=== PATIENT | male | born 1960 | race Two or more races ===

== ENCOUNTER 2017-06-30 23:03 | Inpatient (IN) | payer MEDICARE, OTHER ==
[~2017-06-30] VITALS: Ht 157.5 cm; Wt 69.9 kg
[2017-06-30] MEDS ORDERED: RENVELA800 MG ORAL (23:22)
[2017-06-30] MEDS ORDERED: CATAPRES0.3 MG ORAL (23:22)
[2017-06-30] MEDS ORDERED: AMLODIPINE BESY10 MG ORAL (23:22)
[2017-06-30 23:30] VITALS: BP 191/99
[2017-06-30] MEDS ORDERED: Vancomycin 1.5gm/D5W 250ml 250 ML IVPB ONE (23:45)
[2017-07-01] VITALS (7 sets, daily range): BP systolic 138–181; BP diastolic 80–93
--- NOTE | 2017-07-01 00:26 | Emergency Room Report ---
History of Present Illness General Chief Complaint: Pain Source: Patient Present Illness HPI 57-year-old male history of hypertension, CKD, on dialysis Monday, last dialysis was yesterday, presenting with left infected AV fistula. The patient states that he experienced pain redness and swelling to left forearm , was hospitalized last week for 2 days, states that he got antibiotics, has continued antibiotics at home, but states that there has still been left forearm persistent/worse swelling pain and redness.+ Purulent discharge No fever or chills Allergies: Coded Allergies: HEPARIN (Verified Allergy, Unknown, 06/30/17) Patient History Past Medical History: see triage record Past Surgical History: none Pertinent Family History: none Reviewed Nursing Documentation: PMH: Agreed, PSxH: Agreed Nursing Documentation-PMH Hx Hypertension: Yes Hx Dialysis: Yes - ESRD,[id number] Review of Systems All Other Systems: negative except mentioned in HPI Physical Exam Vital Signs Date Time Temp Pulse Resp B/P (MAP) Pulse Ox O2 Delivery O2 Flow Rate FiO2 06/30/17 23:13 98.2 106 16 191/99 100 Sp02 EP Interpretation: reviewed, normal General Appearance: alert, GCS 15, non-toxic, other - Middle aged male, nontoxic but appears to be in mild distress/pain Head: normocephalic, atraumatic Eyes: bilateral eye normal inspection, bilateral eye PERRL, bilateral eye EOMI ENT: normal ENT inspection, normal pharynx, normal voice, moist mucus membranes Neck: normal inspection, full range of motion, supple Respiratory: normal inspection, lungs clear, normal breath sounds, no respiratory distress, no retraction, no wheezing, speaking full sentences, chest symmetrical Cardiovascular #1: normal inspection, regular rate, rhythm, no edema, normal capillary refill Cardiovascular #2: 2+ radial (R), 2+ radial (L) Gastrointestinal: normal inspection, non tender, soft, non-distended, no guarding Musculoskeletal: normal inspection, back normal, normal range of motion, non- tender Neurologic: normal inspection, alert, oriented x3, responsive, motor strength/ tone normal, sensory intact, normal gait, speech normal Psychiatric: normal inspection, judgement/insight normal, memory normal Skin: normal turgor, other - Left forearm, AV fistula with 2 x 2 ulceration, yellow purulent drainage, surrounding erythema 5 x 5 cm tender to palpation Medical Decision Making Diagnostic Impression: Primary Impression: AV fistula infection Additional Impressions: Cellulitis ESRD (end stage renal disease) on dialysis Anemia ER Course 57-year-old male with redness/swelling to AV fistula for 1.5 weeks DDX: Infected AV fistula/cellulitis No crepitus / pain out of proportion / rapid spreading for concern for nec fasc Plan: Antibiotics Anticipate admission as patient failing outpatient management ER course: Patient received antibiotics Remained stable in ED Disposition: Patient is to be admitted to med surg D/W hospitalist Dr Ruiz who has accepted patient for admission Please note that this Emergency Department Report was dictated using [employer] salesperson technology software, occasionally this can lead to erroneous entry secondary to interpretation by the dictation equipment. Laboratory Tests Test 07/01/17 00:20 White Blood Count 3.5 K/UL (4.8-10.8) L Red Blood Count 3.20 M/UL (4.70-6.10) L Hemoglobin 9.8 G/DL (14.2-18.0) L Hematocrit 31.4 % (42.0-52.0) L Mean Corpuscular Volume 98 FL (80-99) Mean Corpuscular Hemoglobin 30.7 PG (27.0-31.0) Mean Corpuscular Hemoglobin Concent 31.3 G/DL (32.0-36.0) L Red Cell Distribution Width 15.6 % (11.6-14.8) H Platelet Count 202 K/UL (150-450) Mean Platelet Volume 6.3 FL (6.5-10.1) L Neutrophils (%) (Auto) 70.0 % (45.0-75.0) Lymphocytes (%) (Auto) 13.1 % (20.0-45.0) L Monocytes (%) (Auto) 11.5 % (1.0-10.0) H Eosinophils (%) (Auto) 3.9 % (0.0-3.0) H Basophils (%) (Auto) 1.6 % (0.0-2.0) Sodium Level 141 mEQ/L (135-145) Potassium Level 4.3 mEQ/L (3.4-4.9) Chloride Level 96 mEQ/L (98-107) L Carbon Dioxide Level 25 mEQ/L (20-30) Anion Gap 20 (5-15) H Blood Urea Nitrogen 36 mg/dL (7-23) H Creatinine 9.3 mg/dL (0.7-1.2) H Estimate Glomerular Filtration Rate 5.9 mL/min (>60) Glucose Level 91 mg/dL (74-106) Lactic Acid Level Pending Calcium Level 9.2 mg/dL (8.6-10.2) Total Bilirubin 0.3 mg/dL (0.0-1.2) Aspartate Amino Transferase (AST) 19 U/L (5-40) Alanine Aminotransferase (ALT) 5 U/L (3-41) Alkaline Phosphatase 58 U/L (40-129) Total Protein 7.9 g/dL (6.6-8.7) Albumin 4.2 g/dL (3.5-5.2) Globulin 3.7 g/dL Albumin/Globulin Ratio 1.1 (1.0-2.7) Last Vital Signs Date Time Temp Pulse Resp B/P (MAP) Pulse Ox O2 Delivery O2 Flow Rate FiO2 06/30/17 23:13 98.2 106 16 191/99 100 Disposition: ADMITTED INPATIENT Condition: Serious Referrals: NOT CHOSEN SARAVANAN/,REFERRING (PCP) Drew Barry M.D. Jul 01, 2017 00:26
[2017-07-01 00:53] LABS: BASOPHILS % (AUTO) 1.6 % (0.0-2.0); EOSINOPHILS % (AUTO) 3.9 % (0.0-3.0); LYMPHOCYTES % (AUTO) 13.1 % (20.0-45.0); MEAN CORPUSCULAR HEMOGLOBIN 30.7 PG (27.0-31.0); MEAN CORPUSCULAR HGB CONC 31.3 G/DL (32.0-36.0); MEAN CORPUSCULAR VOLUME 98 FL (80-99); MEAN PLATELET VOLUME 6.3 FL (6.5-10.1); MONOCYTES % (AUTO) 11.5 % (1.0-10.0); PLATELET COUNT 202 K/UL (150-450); RED CELL DISTRIBUTION WIDTH 15.6 % (11.6-14.8); WHITE BLOOD COUNT 3.5 K/UL (4.8-10.8)
[2017-07-01 01:07] LABS: ALBUMIN/GLOBULIN RATIO 1.1 (1.0-2.7); CALCIUM 9.2 mg/dL (8.6-10.2); CREATININE 9.3 mg/dL (0.7-1.2); GLOMERULAR FILTRATION RATE 5.9 mL/min (>60); POTASSIUM 4.3 mEQ/L (3.4-4.9); TOTAL PROTEIN 7.9 g/dL (6.6-8.7)
[2017-07-01] MEDS ORDERED: cloNIDine 0.2mg Tab ORAL ONE (01:30)
[2017-07-01] MEDS ORDERED: Morphine Sulfate 4mg/ml Inj IVP ONE (02:00)
[2017-07-01] MEDS ORDERED: Norco 10mg/325mg tab ORAL PRN (09:45)
[2017-07-01] MEDS: Cefepime HCl 1 GM in D5W 55 ML IVPB SCH (14:45)
--- NOTE | 2017-07-01 15:00 | Infectious Diseases Prog Note ---
Assessment/Plan Problems: (1) AV fistula infection Assessment & Plan: recommend vascular surgery for I&D and please send tissue for culture , will start vancomycin with cefepime empirically pending culture results (2) Cellulitis Assessment & Plan: of the left arm, due to surgical fistula infection, will start vancomycin and cefepime empirically pending culture results (3) Sepsis Assessment & Plan: due to the above, continue wide spectrum antibiotics , pending blood culture (4) ESRD (end stage renal disease) on dialysis Assessment & Plan: continue HD as per renal. Subjective Allergies: Coded Allergies: HEPARIN (Verified Allergy, Unknown, 06/30/17) Objective Vital Signs Last 24 Hour Vital Signs Date Time Temp Pulse Resp B/P (MAP) Pulse Ox O2 Delivery O2 Flow Rate FiO2 07/01/17 12:00 97.3 89 20 149/84 99 Room Air 07/01/17 08:07 97.5 78 19 155/80 99 Room Air 07/01/17 04:03 97.9 82 18 139/82 98 Room Air 07/01/17 02:08 98.1 98 16 181/83 100 07/01/17 01:32 181/83 07/01/17 01:30 98.1 98 16 181/83 100 06/30/17 23:30 98.2 106 16 191/99 100 06/30/17 23:13 98.2 106 16 191/99 100 Height (Feet): 5 Height (Inches): 2.00 Weight (Pounds): 158 Laboratory Tests Test 07/01/17 00:20 White Blood Count 3.5 K/UL (4.8-10.8) L Red Blood Count 3.20 M/UL (4.70-6.10) L Hemoglobin 9.8 G/DL (14.2-18.0) L Hematocrit 31.4 % (42.0-52.0) L Mean Corpuscular Volume 98 FL (80-99) Mean Corpuscular Hemoglobin 30.7 PG (27.0-31.0) Mean Corpuscular Hemoglobin Concent 31.3 G/DL (32.0-36.0) L Red Cell Distribution Width 15.6 % (11.6-14.8) H Platelet Count 202 K/UL (150-450) Mean Platelet Volume 6.3 FL (6.5-10.1) L Neutrophils (%) (Auto) 70.0 % (45.0-75.0) Lymphocytes (%) (Auto) 13.1 % (20.0-45.0) L Monocytes (%) (Auto) 11.5 % (1.0-10.0) H Eosinophils (%) (Auto) 3.9 % (0.0-3.0) H Basophils (%) (Auto) 1.6 % (0.0-2.0) Sodium Level 141 mEQ/L (135-145) Potassium Level 4.3 mEQ/L (3.4-4.9) Chloride Level 96 mEQ/L (98-107) L Carbon Dioxide Level 25 mEQ/L (20-30) Anion Gap 20 (5-15) H Blood Urea Nitrogen 36 mg/dL (7-23) H Creatinine 9.3 mg/dL (0.7-1.2) H Estimat Glomerular Filtration Rate 5.9 mL/min (>60) Glucose Level 91 mg/dL (74-106) Lactic Acid Level 1.00 mmol/L (0.66-2.22) Calcium Level 9.2 mg/dL (8.6-10.2) Total Bilirubin 0.3 mg/dL (0.0-1.2) Aspartate Amino Transf (AST/SGOT) 19 U/L (5-40) Alanine Aminotransferase (ALT/SGPT) 5 U/L (3-41) Alkaline Phosphatase 58 U/L (40-129) Total Protein 7.9 g/dL (6.6-8.7) Albumin 4.2 g/dL (3.5-5.2) Globulin 3.7 g/dL Albumin/Globulin Ratio 1.1 (1.0-2.7) Current Medications Medications (Trade) Dose Ordered Sig/Kelly Route PRN Reason Start Time Stop Time Status Last Admin Dose Admin Acetaminophen (Tylenol) 650 mg Q4H PRN ORAL Mild Pain (Pain Scale 1-3) 07/01/17 09:45 07/31/17 09:44 Acetaminophen/ Hydrocodone Bitart (Battiest 10325) 1 ea Q4H PRN ORAL Moderate Pain (Pain Scale 4-6) 07/01/17 09:45 07/08/17 09:44 Amlodipine Besylate (Norvasc) 10 mg DAILY ORAL 07/02/17 09:00 11/7/17 08:59 Cefepime HCl 1 gm/ Dextrose 55 ml @ 110 mls/hr Q24H IVPB 07/01/17 14:30 07/08/17 14:29 07/01/17 14:45 Dextrose (Dextrose 50%) STAT PRN IV Hypoglycemia 07/01/17 09:45 07/31/17 09:44 Morphine Sulfate (Morphine Sulfate) 2 mg Q4H PRN IVP Severe Pain (Pain Scale 7-10) 07/01/17 09:45 07/08/17 09:44 Ondansetron HCl (Zofran) 4 mg Q6H PRN IVP Nausea & Vomiting 07/01/17 09:45 07/31/17 09:44 Sevelamer Carbonate (Renvela) 800 mg THREE TIMES A DAY ORAL 07/01/17 13:00 07/31/17 12:59 07/01/17 14:00 Vancomycin HCl (Vanco rx to dose) 1 ea DAILY PRN MISC Per rx protocol 07/01/17 12:45 07/31/17 12:44 Bassem Tipton M.D. Jul 01, 2017 15:00
--- NOTE | 2017-07-01 17:50 | Nephrology Progress Note ---
Assessment/Plan Problem List: (1) Anemia (2) AV fistula infection (3) ESRD (end stage renal disease) on dialysis (4) Sepsis (5) Cellulitis Plan H&P dictated - [id number] Subjective Constitutional: Denies: no symptoms, chills, diaphoresis, fever, malaise, weakness, other HEENT: Denies: no symptoms, eye pain, blurred vision, tearing, double vision, ear pain, ear discharge, nose pain, nose congestion, throat pain, throat swelling, mouth pain, mouth swelling, other Genitourinary: Denies: no symptoms, burning, discharge, frequency, flank pain, hematuria, incontinence, pain, urgency, other Neurologic/Psychiatric: Denies: no symptoms, anxiety, depressed, emotional problems, headache, numbness, paresthesia, pre-existing deficit, seizure, tingling, tremors, weakness, other Subjective In bed, in no apparent distress, HD ongoing, left arm pain Objective Objective Last 24 Hour Vital Signs Date Time Temp Pulse Resp B/P (MAP) Pulse Ox O2 Delivery O2 Flow Rate FiO2 07/01/17 16:00 97.5 84 20 138/91 98 Room Air 07/01/17 12:00 97.3 89 20 149/84 99 Room Air 07/01/17 08:07 97.5 78 19 155/80 99 Room Air 07/01/17 04:03 97.9 82 18 139/82 98 Room Air 07/01/17 02:08 98.1 98 16 181/83 100 07/01/17 01:32 181/83 07/01/17 01:30 98.1 98 16 181/83 100 06/30/17 23:30 98.2 106 16 191/99 100 06/30/17 23:13 98.2 106 16 191/99 100 Intake and Output 07/01/17 07/02/17 19:00 07:00 Intake Total 55 ml Balance 55 ml IV Total 55 ml Laboratory Tests 07/01/17 00:20: White Blood Count 3.5L, Red Blood Count 3.20L, Hemoglobin 9.8L, Hematocrit 31.4L , Mean Corpuscular Volume 98, Mean Corpuscular Hemoglobin 30.7, Mean Corpuscular Hemoglobin Concent 31.3L, Red Cell Distribution Width 15.6H, Platelet Count 202, Mean Platelet Volume 6.3L, Neutrophils (%) (Auto) 70.0, Lymphocytes (%) (Auto) 13.1L, Monocytes (%) (Auto) 11.5H, Eosinophils (%) (Auto ) 3.9H, Basophils (%) (Auto) 1.6, Sodium Level 141, Potassium Level 4.3, Chloride Level 96L, Carbon Dioxide Level 25, Anion Gap 20H, Blood Urea Nitrogen 36H, Creatinine 9.3H, Estimat Glomerular Filtration Rate 5.9, Glucose Level 91, Lactic Acid Level 1.00, Calcium Level 9.2, Total Bilirubin 0.3, Aspartate Amino Transf (AST/SGOT) 19, Alanine Aminotransferase (ALT/SGPT) 5, Alkaline Phosphatase 58, Total Protein 7.9, Albumin 4.2, Globulin 3.7, Albumin/Globulin Ratio 1.1 Height (Feet): 5 Height (Inches): 2.00 Weight (Pounds): 158 General Appearance: no apparent distress, alert EENT: normal ENT inspection Neck: normal alignment, supple Cardiovascular: normal rate, regular rhythm, no JVD Respiratory/Chest: lungs clear, normal breath sounds Abdomen: non tender, soft Extremities: other - left arm wound Neurologic: alert, oriented x 3, responsive, normal mood/affect Isha Katz N.P. Jul 01, 2017 17:50
[2017-07-01] MEDS ORDERED: Bacitracin Oint UD TOPIC ONE (19:30)
--- NOTE | 2017-07-01 19:44 | General Progress Note ---
Progress Note Progress Note Patient seen and examined Consult dictated # [id number] DENISSE QUIJANO Jul 01, 2017 19:43
--- NOTE | 2017-07-01 22:15 | Consultation ---
DATE OF CONSULTATION: INFECTIOUS DISEASE CONSULTATION CONSULTING PHYSICIAN: Bassem Tipton M.D. REQUESTING PHYSICIAN: Jim Cobos M.D. Reason For Consultation: Left arm AV fistula infection, recommendation for antibiotics therapy in a hemodialysis patient History Of Present Illness: The patient is a 57-year-old male with past medical history of end-stage renal disease, on hemodialysis and hypertension, who had recently left arm AV fistula placed at by one of the vascular surgeon. The patient developed pain, redness, and swelling of the surgical site with pus draining, so he had follow up with his surgeon who placed the fistula, but received some oral antibiotics, which he did not get better with. So, he was brought into [facility] for left arm worsening infection with pus, redness, and purulent discharge from the surgical site. The patient complained of fever. No chills. Left arm swelling, redness, and difficulty moving. The patient was found to have pus at the surgical site in the emergency room. So, he was admitted for evaluation and management. Received antibiotics treatment and I was consulted by the primary provider team for antibiotics choice and further care. Past Medical History: Significant for end-stage renal disease and hypertension. Past Surgical History: He had left arm AV fistula placed couple of weeks ago in . Medications: The patient received vancomycin in the emergency room. For the rest of his medications, please refer to MAR. ALLERGIES: He is allergic to heparin. Social History: The patient denied using any drugs, tobacco, or alcohol. He is unemployed at this point. FAMILY HISTORY: Noncontributory. Review Of Systems: A 12-point of system reviewed were all negative apart from the one I mentioned above in my History and Physical. PHYSICAL EXAMINATION: Vital Signs: Temperature 97.5 degrees, pulse 78, respiration 19, blood pressure 155/80, and saturation 99% on room air. General: A middle-aged male, Ecuadorean speaker, up in bed, awake, alert, and oriented, not in distress. HEENT: Normocephalic, atraumatic. Pupils reactive to light. Moist oral mucosa. No exudate or thrush. NECK: Supple. No lymphadenopathy. CARDIOVASCULAR: Regular rate and rhythm. No murmur or gallop. Lungs: Clear bilaterally. No wheezing or rhonchi. Normal breathing effort. Abdomen: Soft, nontender, nondistended. Positive bowel sounds. No hepatosplenomegaly. Extremities: No edema or cyanosis. Left arm swelling and redness with AV fistula wound infection. Site with ulcer and purulent discharge from that area. Pulse palpitated at the wrist area with normal range of motion at the joint site. Laboratory Data: Labs showed white count of 3.5, hemoglobin of 9.8, platelet count of 202,000. BUN of 36, creatinine of 9.3. AST of 19, ALT of 5. ASSESSMENT AND RECOMMENDATION: 1. Arteriovenous fistula infection. Recommend Vascular Surgery for incision debridement and revision of the fistula. Please send tissue for culture and Gram stain. We will start the patient on vancomycin and cefepime empiric treatment pending culture results. We will order blood culture also to rule out bacteremia. 2. Cellulitis of the left arm due to surgically infected fistula site. We will start vancomycin and cefepime, empiric treatment pending culture results. Further debridement as per Surgery. 3. Sepsis due to the above. Continue wide-spectrum antibiotics therapy. Monitor blood culture. 4. End-stage renal disease, on hemodialysis. Renal service is following. Bassem Tipton M.D. DR: Soumya JOB#: [id number] CC:
[2017-07-02 00:34] VITALS: BP 167/90
[2017-07-02] MEDS: Morphine Sulfate 2mg/ml Inj IVP PRN ×2 (01:35→16:05)
[2017-07-02 04:03] VITALS: BP 169/88
--- NOTE | 2017-07-02 04:30 | HX and Phyl Repo 2 Sig ---
DATE OF ADMISSION: 07/01/2017 History Of Present Illness: The patient is a 57-year-old male with past medical history significant for hypertension, end-stage renal disease on hemodialysis every Monday, , and Monday, who presented to the emergency room with left infected AV fistula. The patient stated that this has been ongoing for about three weeks. He has seen his vascular surgeon at [facility], Dr. Jed Starr, who treated his arm and told him that everything was okay and also had him on antibiotics, but he stated that the arm got worse and then about a week ago, he did see a doctor, but then he started having fever, chills, and increasing pain and decided to come to this emergency room for evaluation. He denies chest pain, but stated that he has noticed swelling on his left shoulder with pain. Denies nausea. No vomiting. No abdominal pain. He has been compliant with his antibiotics. Past Medical History: Significant for hypertension, end-stage renal disease, on hemodialysis. PAST SURGICAL HISTORY: Left AV fistula. Home Medications: Include amlodipine 10 mg p.o. daily, clonidine 0.3 mg p.o. t.i.d., and Renvela 1600 mg p.o. t.i.d. ALLERGIES: He is allergic to heparin. Social History: He lives at home with a friend. Denies any smoking. No alcohol use and no illicit drug use. Review Of Systems: A full 12-point review of system was reviewed with the patient and positives are stated in HPI. PHYSICAL EXAMINATION: General: This is a 57-year-old male in no apparent distress, currently on hemodialysis. Vital Signs: Blood pressure 138/91, heart rate 84, respiratory rate 20, temperature 97.5 degrees, and O2 saturation 98% on room air. HEENT: Head is normocephalic and atraumatic with moist mucous membranes. Pupils are equal, round, and reactive to light and accommodation. Neck: Supple. No JVD noted; however, there is left lateral neck swelling. Trachea midline. LUNGS: Clear to auscultation bilaterally. CARDIOVASCULAR: Regular rate and rhythm. No murmur. No gallop. Abdomen: Soft, nontender, nondistended. Positive bowel sounds in all four quadrants. Extremities: No edema. No cyanosis. No clubbing. Left upper extremity edema 4+ with open wound noted with purulent discharge. Area of erythema noted as well. Arm is warm to touch. Neurologic: The patient is awake, alert, and oriented x3 with no focal deficits. Laboratory Data: CBC, white count 3.5, hemoglobin 9.8, hematocrit 31.4, and platelet count of 202,000. BMP, sodium 141, potassium 4.3, chloride 96, bicarbonate 25, BUN 36, creatinine 9.3, blood glucose 91. RADIOLOGIC FINDINGS: None at this time. ASSESSMENT: 1. Left upper arm cellulitis. 2. Left arteriovenous fistula infection. 3. End-stage renal disease, on hemodialysis. 4. Anemia of chronic kidney disease. 5. Left upper arm pain. Plan: The patient has been seen by Dr. Tipton, Infectious Disease. We will follow up with recommendations. We will continue antibiotics as recommended. We will obtain vascular surgeon consult to assess left arm. We will monitor electrolytes and correct with hemodialysis. We will continue hemodialysis as scheduled. Monitor temperature. Wound care per recommendations. We will monitor hemoglobin and hematocrit and transfuse as needed. We will continue home medications. We will monitor the patient's overall response to treatment. Jim Cobos M.D. Isha Katz DR: Sheela JOB#: [id number] CC:
--- NOTE | 2017-07-02 06:15 | Consultation ---
DATE OF CONSULTATION: 07/01/2017 VASCULAR SURGERY CONSULTATION CONSULTING PHYSICIAN: Kel Mullins M.D. REFERRING PHYSICIAN: Jim Cobos M.D. REASON FOR EVALUATION: Left arm AV shunt evaluation. History Of Present Complaint: This is a 57-year-old male, who suffers from end-stage renal failure, on hemodialysis. The patient is currently on dialysis through a right chest tunneled Perma catheter. The patient presented with left arm edema and pain. The patient reportedly has seen a vascular surgeon recently and had undergone a procedure on the left forearm AV fistula several weeks ago. The patient has a followup appointment coming up this week. The patient reportedly had a left cephalic Naomie AV fistula for many years. The patient had developed pseudoaneurysm. This was revised reportedly by the same surgeon. The patient still has blistered pseudoaneurysm. There is some edema from the new fistula, which was created. Vascular Surgery is consulted for further evaluation. The patient has no fever and has a normal white count. The patient has been on antibiotics per Infectious Diseases service. Past Medical History: As above. History of end-stage renal failure, on hemodialysis, multiple left forearm AV shunt procedures and revisions by vascular surgeon recently, right chest Perma catheter, and hypertension. MEDICATIONS: See attached MAR. ALLERGIES: He has allergies to heparin. SOCIAL HISTORY: Denies history of smoking, drugs, or alcohol use. FAMILY HISTORY: Unremarkable. SYSTEMIC REVIEW: CARDIOVASCULAR: No history of chest pain or palpitations. PULMONARY: No cough. No hemoptysis. Gastrointestinal: No history of abdominal pain, constipation, or diarrhea. GENITOURINARY: No urinary symptoms. NEUROLOGICAL: No history of stroke or seizures. PHYSICAL EXAMINATION: Vital Signs: The patient is afebrile at 97.5 degrees, heart rate is 84, blood pressure is 138/91, respirations 20, and saturation 98%. The patient has a left forearm Naomie AV fistula with two pseudoaneurysm formation. The lower one has an open chronic blister. There is no active bleeding. There is a new surgical scar in the wrist as well as antecubital area and there is another scar in the upper arm. There is active thrill noted in the Naomie as well as in the antecubital fossa. Mild edema. He has palpable radial pulses and intact Doppler's. Right chest Perma catheter is clean, dry, and intact. LUNGS: Clear to auscultation. HEART: Regular rate and rhythm. ABDOMEN: Soft and nontender. Extremities: There is palpable femoral pulses with intact pedal Doppler's bilaterally. Laboratory Data: Laboratories revealed WBC of 3.5, hemoglobin 9.8, and platelet count is 202,000. CO2 is 25, BUN is 36, creatinine 9.3, potassium 4.3, and sodium 141. IMPRESSION: 1. 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 2. Status post recent surgery by another surgeon with revision of the left forearm arteriovenous fistula with arm edema and pain. 3. History of end-stage renal failure requiring permanent access for hemodialysis, status post right chest Perma catheter. 4. History of hypertension. PLAN AND RECOMMENDATIONS: 1. We will obtain a left forearm AV shunt duplex. Continue left forearm wound care. We will obtain ultrasound of the AV shunt. Antibiotics per Infectious Diseases service. 2. The patient has an appointment with his vascular surgeon on Monday and will follow up accordingly. The above was discussed at length with the patient and the nurse at bedside. Keep arm elevation and continue dialysis through the right chest Perma catheter. Kel Mullins M.D. DR: ANDRIA JOB#: [id number] CC: Kel Mullins M.D.; Fax#: [phone] Cobos M.D. ; Fax#: [phone]
[2017-07-02 07:50] LABS: MEAN CORPUSCULAR HEMOGLOBIN 31.1 PG (27.0-31.0); MEAN CORPUSCULAR HGB CONC 31.7 G/DL (32.0-36.0); MEAN CORPUSCULAR VOLUME 98 FL (80-99); MEAN PLATELET VOLUME 5.9 FL (6.5-10.1); PLATELET COUNT 204 K/UL (150-450); RED BLOOD COUNT 3.18 M/UL (4.70-6.10); RED CELL DISTRIBUTION WIDTH 15.6 % (11.6-14.8); WHITE BLOOD COUNT 3.2 K/UL (4.8-10.8)
[2017-07-02 08:00] VITALS: BP 148/92
[2017-07-02 08:36] LABS: CREATININE 8.4 mg/dL (0.7-1.2); GLOMERULAR FILTRATION RATE 6.6 mL/min (>60)
--- NOTE | 2017-07-02 09:29 | Diagnostic Imaging Report ---
Indication: Left forearm swelling Technique: CT left forearm was performed utilizing automated exposure control without intravenous contrast material. Axial, sagittal and coronal images were generated. CT dose: Total DLP 488 mGycm; CTDI vol 11.5 mGy Comparison: None Findings: There is no acute fracture. There is diffuse circumferential subcutaneous ill-defined fluid. No drainable soft tissue fluid collection is identified. Extensive vascular calcifications are seen. There is an apparent radial artery to cephalic vein Naomie fistula. The apparent cephalic vein within the mid and proximal forearm is expanded with high density material spanning approximately 12 cm in length. No soft tissue gas is identified. Impression: No acute osseous abnormality. Apparent dialysis access of the left forearm probably a Naomie fistula involving the radial artery and cephalic vein. Approximately 12 cm segment of the cephalic vein within the mid and proximal forearm which appears expanded with high density material suggestive of thrombosis. Superimposed infection certainly cannot be excluded. Clinical correlation recommended. Diffuse circumferential subcutaneous edema versus cellulitis of the left forearm. No obvious soft tissue gas. Clinical correlation recommended. No acute osseous abnormality. The CT scanner at [facility] is accredited by the [employer] and the scans are performed using protocols designed to limit radiation exposure to as low as reasonably achievable to attain images of sufficient resolution adequate for diagnostic evaluation.
[2017-07-02 11:33] LABS: BAND NEUTROPHILS % (MANUAL) 0 % (0-8); BASOPHILS % (MANUAL) 0 % (0-2); EOSINOPHILS % (MANUAL) 6 % (0-3); HYPOCHROMASIA 2+; LYMPHOCYTES % (MANUAL) 16 % (20-45); NEUTROPHILS % (MANUAL) 68 % (45-75); PLATELET ESTIMATE ADEQUATE; TOTAL CELLS COUNTED 100
[2017-07-02 11:34] LABS: ANISOCYTOSIS 1+; PLATELET MORPHOLOGY NORMAL
[2017-07-02 12:00] VITALS: BP 153/96
--- NOTE | 2017-07-02 13:43 | Nephrology Progress Note ---
Assessment/Plan Problem List: (1) Anemia (2) AV fistula infection (3) ESRD (end stage renal disease) on dialysis (4) Sepsis (5) Cellulitis Plan Vascular following - will f/u with recs Continue HD as scheduled Monitor H&H, transfuse prn Continue wound care Pain management prn Monitor lytes, correct prn AM labs Subjective Constitutional: Denies: no symptoms, chills, diaphoresis, fever, malaise, weakness, other HEENT: Denies: no symptoms, eye pain, blurred vision, tearing, double vision, ear pain, ear discharge, nose pain, nose congestion, throat pain, throat swelling, mouth pain, mouth swelling, other Neurologic/Psychiatric: Denies: no symptoms, anxiety, depressed, emotional problems, headache, numbness, paresthesia, pre-existing deficit, seizure, tingling, tremors, weakness, other Subjective In bed, in no apparent distress, HD ongoing, left arm pain Objective Objective Last 24 Hour Vital Signs Date Time Temp Pulse Resp B/P (MAP) Pulse Ox O2 Delivery O2 Flow Rate FiO2 07/02/17 12:00 98.2 100 20 153/96 97 Room Air 07/02/17 08:06 98 169/88 07/02/17 08:00 97.3 100 20 148/92 94 Room Air 07/02/17 04:03 97.9 98 20 169/88 96 Room Air 07/02/17 00:34 97.6 96 20 167/90 96 Room Air 07/01/17 20:15 156/88 07/01/17 19:30 97.3 104 20 163/93 96 Room Air 07/01/17 19:25 Room Air 07/01/17 18:45 Room Air 07/01/17 16:00 97.5 84 20 138/91 98 Room Air Laboratory Tests 07/02/17 04:55: White Blood Count 3.2L, Red Blood Count 3.18L, Hemoglobin 9.9L, Hematocrit 31.1L , Mean Corpuscular Volume 98, Mean Corpuscular Hemoglobin 31.1H, Mean Corpuscular Hemoglobin Concent 31.7L, Red Cell Distribution Width 15.6H, Platelet Count 204, Mean Platelet Volume 5.9L, Neutrophils (%) (Auto) , Lymphocytes (%) (Auto) , Monocytes (%) (Auto) , Eosinophils (%) (Auto) , Basophils (%) (Auto) , Differential Total Cells Counted 100, Neutrophils % ( Manual) 68, Lymphocytes % (Manual) 16L, Monocytes % (Manual) 10, Eosinophils % ( Manual) 6H, Basophils % (Manual) 0, Band Neutrophils 0, Platelet Estimate Adequate, Platelet Morphology Normal, Hypochromasia 2+, Anisocytosis 1+, Sodium Level 145, Potassium Level 4.0, Chloride Level 94L, Carbon Dioxide Level 31H, Anion Gap 20H, Blood Urea Nitrogen 23, Creatinine 8.4H, Estimat Glomerular Filtration Rate 6.6, Glucose Level 71L, Calcium Level 9.0, Random Vancomycin Level 23.3 Height (Feet): 5 Height (Inches): 2.00 Weight (Pounds): 154 General Appearance: no apparent distress EENT: normal ENT inspection Neck: non-tender, normal alignment, supple Cardiovascular: normal rate, regular rhythm, no JVD Respiratory/Chest: normal breath sounds, no respiratory distress Abdomen: soft, no organomegaly, no mass Extremities: moderate edema, other - left arm cellulitis with dressing Neurologic: alert, oriented x 3, responsive, normal mood/affect Isha Katz N.P. Jul 02, 2017 13:43
--- NOTE | 2017-07-02 13:46 | Infectious Diseases Prog Note ---
Assessment/Plan Problems: (1) AV fistula infection Assessment & Plan: recommend vascular surgery for I&D and please send tissue for culture , continue vancomycin with cefepime empirically pending culture results (2) Cellulitis Assessment & Plan: of the left arm, due to surgical fistula infection, will start vancomycin and cefepime empirically pending culture results (3) Sepsis Assessment & Plan: due to the above, continue wide spectrum antibiotics , pending blood culture (4) ESRD (end stage renal disease) on dialysis Assessment & Plan: continue HD as per renal. (5) AV fistula thrombosis Assessment & Plan: recommend revision by vascular Subjective Constitutional: Reports: no symptoms HEENT: Reports: no symptoms Respiratory: Reports: no symptoms Breasts: Reports: no symptoms Cardiovascular: Reports: no symptoms Gastrointestinal/Abdominal: Reports: no symptoms Genitourinary: Reports: no symptoms Neurologic: Reports: no symptoms Psychiatric: Reports: no symptoms Skin: Reports: ulcer, other - left forearm fistula wound with cellulitis Endocrine: Reports: no symptoms Hematologic: Reports: no symptoms Allergies: Coded Allergies: HEPARIN (Verified Allergy, Unknown, 06/30/17) Objective Vital Signs Last 24 Hour Vital Signs Date Time Temp Pulse Resp B/P (MAP) Pulse Ox O2 Delivery O2 Flow Rate FiO2 07/02/17 12:00 98.2 100 20 153/96 97 Room Air 07/02/17 08:06 98 169/88 07/02/17 08:00 97.3 100 20 148/92 94 Room Air 07/02/17 04:03 97.9 98 20 169/88 96 Room Air 07/02/17 00:34 97.6 96 20 167/90 96 Room Air 07/01/17 20:15 156/88 07/01/17 19:30 97.3 104 20 163/93 96 Room Air 07/01/17 19:25 Room Air 07/01/17 18:45 Room Air 07/01/17 16:00 97.5 84 20 138/91 98 Room Air Height (Feet): 5 Height (Inches): 2.00 Weight (Pounds): 154 General Appearance: WD/WN, no acute distress HEENT: normocephalic, atraumatic, anicteric, mucous membranes moist, PERRL Respiratory/Chest: chest wall non-tender, lungs clear, normal breath sounds, no respiratory distress, no accessory muscle use, decreased breath sounds Cardiovascular: normal peripheral pulses, normal rate, regular rhythm, no gallop/murmur, no JVD Abdomen: normal bowel sounds, soft, non tender, no organomegaly, non distended , no mass, no scars Genitourinary: normal external genitalia Extremities: no cyanosis, no clubbing Skin: no rash, no lesions, ulcers - left forearm wound ulcer, with infection and cellulities Neurologic/Psychiatric: alert, oriented x 3, responsive Musculoskeletal: normal muscle bulk Microbiology Date/Time Source Procedure Growth Status 07/01/17 00:20 Blood Blood Culture - Preliminary NO GROWTH AFTER 24 HOURS Resulted 07/01/17 00:20 Blood Blood Culture - Preliminary NO GROWTH AFTER 24 HOURS Resulted Laboratory Tests Test 07/02/17 04:55 White Blood Count 3.2 K/UL (4.8-10.8) L Red Blood Count 3.18 M/UL (4.70-6.10) L Hemoglobin 9.9 G/DL (14.2-18.0) L Hematocrit 31.1 % (42.0-52.0) L Mean Corpuscular Volume 98 FL (80-99) Mean Corpuscular Hemoglobin 31.1 PG (27.0-31.0) H Mean Corpuscular Hemoglobin Concent 31.7 G/DL (32.0-36.0) L Red Cell Distribution Width 15.6 % (11.6-14.8) H Platelet Count 204 K/UL (150-450) Mean Platelet Volume 5.9 FL (6.5-10.1) L Neutrophils (%) (Auto) % (45.0-75.0) Lymphocytes (%) (Auto) % (20.0-45.0) Monocytes (%) (Auto) % (1.0-10.0) Eosinophils (%) (Auto) % (0.0-3.0) Basophils (%) (Auto) % (0.0-2.0) Differential Total Cells Counted 100 Neutrophils % (Manual) 68 % (45-75) Lymphocytes % (Manual) 16 % (20-45) L Monocytes % (Manual) 10 % (1-10) Eosinophils % (Manual) 6 % (0-3) H Basophils % (Manual) 0 % (0-2) Band Neutrophils 0 % (0-8) Platelet Estimate Adequate Platelet Morphology Normal Hypochromasia 2+ Anisocytosis 1+ Sodium Level 145 mEQ/L (135-145) Potassium Level 4.0 mEQ/L (3.4-4.9) Chloride Level 94 mEQ/L (98-107) L Carbon Dioxide Level 31 mEQ/L (20-30) H Anion Gap 20 (5-15) H Blood Urea Nitrogen 23 mg/dL (7-23) Creatinine 8.4 mg/dL (0.7-1.2) H Estimat Glomerular Filtration Rate 6.6 mL/min (>60) Glucose Level 71 mg/dL (74-106) L Calcium Level 9.0 mg/dL (8.6-10.2) Random Vancomycin Level 23.3 ug/mL Current Medications Medications (Trade) Dose Ordered Sig/Kelly Route PRN Reason Start Time Stop Time Status Last Admin Dose Admin Acetaminophen (Tylenol) 650 mg Q4H PRN ORAL Mild Pain (Pain Scale 1-3) 07/01/17 09:45 07/31/17 09:44 Acetaminophen/ Hydrocodone Bitart ([place] 10/325) 1 ea Q4H PRN ORAL Moderate Pain (Pain Scale 4-6) 07/01/17 09:45 07/08/17 09:44 Amlodipine Besylate (Norvasc) 10 mg DAILY ORAL 07/02/17 09:00 08/01/17 08:59 07/02/17 08:06 Atenolol (Tenormin) 50 mg BID ORAL 07/02/17 18:00 08/01/17 17:59 Cefepime HCl 1 gm/ Dextrose 55 ml @ 110 mls/hr Q24H IVPB 07/01/17 14:30 07/08/17 14:29 07/01/17 14:45 Dextrose (Dextrose 50%) STAT PRN IV Hypoglycemia 07/01/17 09:45 07/31/17 09:44 Morphine Sulfate (Morphine Sulfate) 2 mg Q4H PRN IVP Severe Pain (Pain Scale 7-10) 07/01/17 09:45 07/08/17 09:44 07/02/17 01:35 Ondansetron HCl (Zofran) 4 mg Q6H PRN IVP Nausea & Vomiting 07/01/17 09:45 07/31/17 09:44 Sevelamer Carbonate (Renvela) 800 mg THREE TIMES A DAY ORAL 07/01/17 13:00 07/31/17 12:59 07/02/17 13:14 Vancomycin HCl (Vanco rx to dose) 1 ea DAILY PRN MISC Per rx protocol 07/01/17 12:45 07/31/17 12:44 Vancomycin/Sodium Chloride 250 ml @ 166.667 mls/hr ONCE ONCE IVPB 07/03/17 09:00 07/03/17 10:29 Bassem Tipton M.D. Jul 02, 2017 13:46
[2017-07-02] MEDS: Cefepime HCl 1 GM in D5W 55 ML IVPB SCH (15:51)
[2017-07-02 16:00] VITALS: BP 193/100
[2017-07-02 20:00] VITALS: BP 162/94
[2017-07-03] MEDS ORDERED: Vancomycin 750mg/NS 250ml IVPB ONE (09:00)
--- NOTE | 2017-07-04 14:01 | Discharge Summary ---
Discharge Summary Hospital Course Date of Admission Jul 01, 2017 at 00:22 Date of Discharge Jul 02, 2017 at 20:10 Admitting Diagnosis Cellulitis HPI Santiago Barnett is a 57 year old male who was admitted on Jul 01, 2017 at 00:22 for Cellulitis Hospital Course dc summary #[id number] Discharge Medications Continued Medications: Amlodipine Besylate* (Amlodipine Besylate*) 10 Mg Tablet 10 MG ORAL DAILY, TAB Clonidine Hcl* (Catapres*) 0.3 Mg Tablet 0.3 MG ORAL THREE TIMES A DAY, TAB Sevelamer Carbonate (Renvela) 800 Mg Tablet 4 TAB ORAL THREE TIMES A DAY, TAB Discharge Condition Upon Discharge: stable Discharge Disposition Patient was discharged to Home () Discharge Diagnoses: Discharge Instructions Discharge Instructions Special Instructions I have been assigned to complete a D/C Summary on this account. I was not involved in the patient management Evelina Santillan NP ([place]) Jul 04, 2017 14:01
--- NOTE | 2017-07-05 06:30 | Discharge Summary 2 SIG ---
DATE OF ADMISSION: 07/01/2017 DATE OF DISCHARGE: 07/02/2017 CONSULTANTS: 1. Bassem Tipton M.D., infectious diseases specialist. 2. Kel Mullins M.D., vascular surgeon. BRIEF HOSPITAL STAY: 57-year-old male with a history of hypertension, end-stage renal disease, on hemodialysis, presented with a left infected AV fistula. The patient reported pain, redness, and swelling in the left forearm, was hospitalized last week for two days and received antibiotic at the hospital as well as prescriptions for pills to continue antibiotic at home. Patient stated that he still had pain, significant edema and redness along with purulent discharge. He denied fever or chills. Workup in the emergency room revealed no fever. Pulse oximetry was stable on room air. Blood pressure was elevated -191/99. No leukocytosis. WBC- 3.5, hemoglobin -9.8, and hematocrit -31.4. BUN and creatinine were consistent with end-stage renal disease. BUN -36 and creatinine -9.3 respectively. Lactic acid- 1.0. The patient was started on empiric antibiotics. First dose given in the emergency department. Infectious Diseases doctor closely followed the patient. He placed the patient on empiric antibiotics and recommended vascular surgery consult for incision, debridement and revision of AV shunt. Blood cultures were drawn, preliminary negative. Again, the patient has no leukocytosis and no fever while in the hospital. Vascular surgeon had seen and evaluated the patient. 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 The patient had a recent surgery with revision of the left forearm arteriovenous fistula. He recommended to obtain Duplex of the left forearm, which could be done as outpatient. Surgeon recommended to continue wound care and provide antibiotics as per ID. specialist. The patient will have appointment with the vascular surgeon on Monday for further follow up. Surgeon also recommended to elevate arm and continue hemodialysis through the right chest Perma catheter. Blood pressure was managed with calcium channel nas and clonidine and was stable. Counts were closely watched. The patient was stable for discharge. FINAL DIAGNOSES: 1. Cellulitis of left arteriovenous fistula site. 2. Possible sepsis. 3. 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 4. Status post recent surgery with revision of the left forearm arteriovenous fistula with arm edema and pain. 5. End-stage renal disease, on hemodialysis. 6. Hypertension. 7. Anemia of chronic kidney disease. 8. Left upper extremity pain. DISCHARGE MEDICATIONS: See medication reconciliation list. DISCHARGE INSTRUCTIONS: The patient was discharged home. FOLLOWUP: Follow up with outpatient hemodialysis. Follow up with vascular surgeon as advised. Jim Cobos M.D. I have been assigned to dictate discharge summary on this account and I was not involved in the patient's management. Evelina Forbesmaryjane N.PMily DR: MAHAMED JOB#: [id number] CC: BONY
== END 2017-07-02 20:10 | disposition home or self-care (01) | DRG 871 ==
LOC: EMR 23:50 → 4E 07-01 00:22 → EDBEDREQ 07-01 01:03 → 4E 07-01 21:23
PROC: 5A1D70Z Performance of Urinary Filtration, Intermittent, Less than 6 Hours Per Day (ICD-10-PCS; principal; 2017-07-01)
DX: A41.9 Sepsis, unspecified organism (principal); N18.6 End stage renal disease; I12.0 Hypertensive chronic kidney disease with stage 5 chronic kidney disease or end stage renal disease; T82.898A Other specified complication of vascular prosthetic devices, implants and grafts, initial encounter; L03.114 Cellulitis of left upper limb; Y83.2 Surgical operation with anastomosis, bypass or graft as the cause of abnormal reaction of the patient, or of later complication, without mention of misadventure at the time of the procedure; Z99.2 Dependence on renal dialysis; Z88.8 Allergy status to other drugs, medicaments and biological substances; D63.1 Anemia in chronic kidney disease
CPT/HCPCS: 36415; 76881; 80048; 80053; 80202; 83605; 85007; 85025; 87040; 87081; 93971; 93990; 99285

== ENCOUNTER 2018-05-11 21:15 | Emergency (ER) | payer MEDICARE, OTHER ==
[~2018-05-11] VITALS: Ht 165.1 cm; Wt 81.6 kg
[~2018-05-11 21:15] MED LIST: AMLODIPINE BESY10 MG ORAL; CATAPRES0.3 MG ORAL; RENVELA800 MG ORAL
--- NOTE | 2018-05-11 21:22 | Emergency Room Report ---
History of Present Illness General Chief Complaint: To Be Triaged Source: Patient Present Illness HPI This is a 58 year male with a history renal failure on hemodialysis. He also has a history of rectal bleeding and had colonoscopy done about one to 2 years ago. It showed an internal hemorrhoid. He presents with chief complaint of left lower quadrant abdominal pain with rectal bleeding. Onset tonight. Pain is to the left lower quadrant. No radiation. Sharp and crampy. 7 out of 10. No fever or chills but does have little nausea but no vomiting. Denies pain in the left lower quadrant before. Nothing made it better. Nothing made it worse. Denies any other complaint. Allergies: Coded Allergies: No Known Allergies (Unverified , 05/11/18) Patient History Past Medical History: see triage record, old chart reviewed, HTN, renal disease , dialysis Past Surgical History: other Pertinent Family History: none Social History: Denies: smoking Immunizations: other Reviewed Nursing Documentation: PMH: Agreed; PSxH: Agreed Review of Systems Eye: Denies: eye pain, blurred vision ENT: Denies: ear pain, nose congestion, throat swelling Respiratory: Denies: cough, shortness of breath Cardiovascular: Denies: chest pain, palpitations Gastrointestinal: Reports: abdominal pain; Denies: diarrhea, nausea, vomiting Musculoskeletal: Denies: back pain, joint pain Skin: Denies: rash Neurological: Denies: headache, numbness Endocrine: Denies: increased thirst, increased urine Hematologic/Lymphatic: Denies: easy bruising All Other Systems: negative except mentioned in HPI Physical Exam vitals with high blood pressure Sp02 EP Interpretation: reviewed, normal General Appearance: well appearing, no apparent distress, alert Head: normocephalic, atraumatic Eyes: bilateral eye PERRL, bilateral eye EOMI ENT: hearing grossly normal, normal pharynx Neck: full range of motion, supple, no meningismus Respiratory: chest non-tender, lungs clear, normal breath sounds Cardiovascular #1: regular rate, rhythm, no murmur Gastrointestinal: normal bowel sounds, no mass, no organomegaly, no bruit, non- distended, tenderness - left lower quadrant Rectal: normal exam, normal rectal tone, other - yellow stool. Heme positive. Musculoskeletal: back normal, gait/station normal, normal range of motion Neurologic: oriented x3, responsive Psychiatric: mood/affect normal Skin: warm/dry Medical Decision Making Diagnostic Impression: Primary Impression: Abdominal pain Qualified Codes: R10.32 - Left lower quadrant pain Additional Impression: Rectal bleeding ER Course Patient presents with abdominal pain and rectal bleeding. Hemoglobin stable. No bleeding here. This appeared be a chronic issue for him. He had a recent colonoscopy and was unremarkable per his history. We'll discharge home. I see no evidence of an acute abdomen or infection. Lab Results Impression labs unremarkable EKG Diagnostic Results Rate: normal Rhythm: NSR ST Segments: no acute changes CT/MRI/US Diagnostic Results CT/MRI/US Diagnostic Results : Imaging Test Ordered: CT abdomen and pelvis Impression negative per radiologist Status: improved Disposition: HOME, SELF-CARE Condition: Stable Additional Instructions: Follow-up with your doctor within 7 days. Keep your dialysis appointment. Return if worse. GANESH THURSTON M.D. May 11, 2018 21:22
[2018-05-11 21:26] LABS: BASOPHILS % (AUTO) 1.1 % (0.0-2.0); HEMATOCRIT 40.3 % (42.0-52.0); HEMOGLOBIN 13.4 G/DL (14.2-18.0); MEAN CORPUSCULAR VOLUME 91 FL (80-99); MONOCYTES % (AUTO) 5.6 % (1.0-10.0); NEUTROPHILS % (AUTO) 76.3 % (45.0-75.0); PLATELET COUNT 127 K/UL (150-450); RED BLOOD COUNT 4.43 M/UL (4.70-6.10); RED CELL DISTRIBUTION WIDTH 15.3 % (11.6-14.8); WHITE BLOOD COUNT 8.6 K/UL (4.8-10.8)
[2018-05-11] MEDS ORDERED: Morphine Sulfate 4mg/ml Inj (IV USE ONLY) IVP ONE (21:30)
[2018-05-11 21:34] LABS: ANION GAP 13 mmol/L (5-15); BLOOD UREA NITROGEN 51 mg/dL (7-18); CALCIUM 8.4 MG/DL (8.5-10.1); CARBON DIOXIDE 30 MMOL/L (21-32); CHLORIDE 101 MMOL/L (98-107); CREATININE 12.6 MG/DL (0.55-1.30); POTASSIUM 5.7 MMOL/L (3.5-5.1); SODIUM 144 MMOL/L (136-145)
[2018-05-11 21:38] LABS: ALANINE AMINOTRANSFERASE 18 U/L (12-78); ALBUMIN 3.8 G/DL (3.4-5.0); ALBUMIN/GLOBULIN RATIO 0.8 (1.0-2.7); ALKALINE PHOSPHATASE 83 U/L (46-116); ASPARTATE AMINO TRANSFERASE 27 U/L (15-37); BILIRUBIN,TOTAL 0.5 MG/DL (0.2-1.0)
[2018-05-11] MEDS ORDERED: AMLODIPINE BESY10 MG ORAL (21:41)
[2018-05-11] MEDS ORDERED: RENVELA800 MG ORAL (21:41)
[2018-05-11 21:50] VITALS: BP 157/76
[2018-05-11] MEDS ORDERED: CATAPRES0.3 MG ORAL (22:31)
--- NOTE | 2018-05-11 22:37 | Diagnostic Imaging Report ---
EXAM: CT Abdomen and Pelvis Without Intravenous Contrast CLINICAL HISTORY: ABD PAIN TECHNIQUE: Axial computed tomography images of the abdomen and pelvis without intravenous contrast. CTDI is 13.38 + 0.15 mGy and DLP is 628 mGy-cm. One or more of the following dose reduction techniques were used: automated exposure control, adjustment of the mA and/or kV according to patient size, use of iterative reconstruction technique. COMPARISON: No relevant prior studies available. FINDINGS: Lung bases: Unremarkable. Heart: Cardiomegaly. ABDOMEN: Liver: Dense liver. Gallbladder and bile ducts: No calcified stones. No ductal dilation. Pancreas: Unremarkable. Spleen: Splenomegaly. Adrenals: Unremarkable. Kidneys and ureters: Atrophic kidneys with cysts and other low attenuation foci. Right nephrolithiasis. Stomach and bowel: No mariela mural thickening. Nonobstructive bowel gas pattern. PELVIS: Appendix: No findings to suggest acute appendicitis. Bladder: Unremarkable. Reproductive: Unremarkable. ABDOMEN and PELVIS: Intraperitoneal space: Unremarkable. Bones/joints: Renal osteodystrophy and small nonspecific lucencies. Soft tissues: Fat containing left inguinal hernia. Vasculature: Unremarkable. No abdominal aortic aneurysm. Lymph nodes: No enlarged lymph nodes. IMPRESSION: 1. Atrophic kidneys with cysts and other low attenuation foci. 2. Right nephrolithiasis.
[2018-05-11 23:11] VITALS: BP 137/79
[2018-05-11 23:50] VITALS: BP 137/79
--- NOTE | 2018-05-18 00:56 | Cardiology Report ---
APPROVED REPORT EKG Measurement Heart [id number] Sinus rhythm with 1st degree AV block Otherwise normal ECG
== END 2018-05-11 23:52 | disposition home or self-care (01) ==
LOC: EMR 21:24 → MERGE 21:24 → EMR 23:52
DX: K62.5 Hemorrhage of anus and rectum (principal); R10.32 Left lower quadrant pain; K64.8 Other hemorrhoids; I12.0 Hypertensive chronic kidney disease with stage 5 chronic kidney disease or end stage renal disease; N18.6 End stage renal disease; Z99.2 Dependence on renal dialysis
CPT/HCPCS: 36415; 74176; 80053; 83690; 85025; 93005; 96374; 96375; 99285; J2270; J2405

== ENCOUNTER 2018-08-24 10:30 | Inpatient (IN) | payer MEDICARE, OTHER ==
[~2018-08-24] VITALS: Ht 167.6 cm; Wt 83.5 kg
[2018-08-24] VITALS (7 sets, daily range): BP systolic 140–202; BP diastolic 72–85
[~2018-08-24 10:30] MED LIST changes: +NORVASC2.5 MG ORAL
[2018-08-24 11:10] LABS: HEMOGLOBIN 11.8 G/DL (14.2-18.0); MEAN CORPUSCULAR VOLUME 91 FL (80-99); PLATELET COUNT 113 K/UL (150-450); RED BLOOD COUNT 3.94 M/UL (4.70-6.10); RED CELL DISTRIBUTION WIDTH 14.1 % (11.6-14.8); WHITE BLOOD COUNT 5.5 K/UL (4.8-10.8)
[2018-08-24] MEDS ORDERED: Morphine Sulfate 4mg/ml Inj (IV/IM USE ONLY) IVP ONE (11:15)
--- NOTE | 2018-08-24 11:24 | Diagnostic Imaging Report ---
Indication: Chest pain Technique: One view of the chest Comparison: 03/25/2012 Findings: Interim placement of a right jugular tunneled dialysis catheter. Left subclavian and axillary venous stent are now present. The heart is enlarged. The lungs and pleural spaces are clear. Impression: Cardiomegaly. No acute process Other findings as noted
[2018-08-24 11:25] LABS: ANION GAP 18 mmol/L (5-15); BLOOD UREA NITROGEN 83 mg/dL (7-18); CALCIUM 7.7 MG/DL (8.5-10.1); CARBON DIOXIDE 21 MMOL/L (21-32); CHLORIDE 99 MMOL/L (98-107); CREATININE 14.6 MG/DL (0.55-1.30); POTASSIUM 5.6 MMOL/L (3.5-5.1); SODIUM 138 MMOL/L (136-145)
[2018-08-24 11:38] LABS: ALANINE AMINOTRANSFERASE 17 U/L (12-78); ALBUMIN 3.6 G/DL (3.4-5.0); ALBUMIN/GLOBULIN RATIO 0.8 (1.0-2.7); ALKALINE PHOSPHATASE 72 U/L (46-116); ASPARTATE AMINO TRANSFERASE 19 U/L (15-37); BILIRUBIN,TOTAL 0.6 MG/DL (0.2-1.0); CKMB 1.5 NG/ML (0.0-3.6); CREATINE KINASE 297 U/L (26-308)
[2018-08-24] MEDS ORDERED: HYDROmorphone 1mg/ml Carpuject IVP ONE (12:15)
[2018-08-24] MEDS: cloNIDine 0.2mg Tab ORAL SCH ×2 (13:57→21:02)
--- NOTE | 2018-08-24 13:59 | Infectious Diseases Prog Note ---
Assessment/Plan Problems: (1) Hemodialysis catheter infection Assessment & Plan: with localized swelling , pain and redness , rule out abscess VS hematoma , will start vancomycin and zosyn empirically and order venous doopler of the right subclavian vein . recommend vascular eval (2) Fever Assessment & Plan: suspect due to the above with possible sepsis, continue wide spectrum antibiotics and tylenol as needed (3) ESRD (end stage renal disease) Assessment & Plan: on HD , renal is following (4) Sepsis Assessment & Plan: suspect due to the above , continue vancomycin and zosyn pending cultures and other studies Subjective Allergies: Coded Allergies: HEPARIN (Verified Allergy, Unknown, 06/30/17) Objective Vital Signs Last 24 Hour Vital Signs Date Time Temp Pulse Resp B/P (MAP) Pulse Ox O2 Delivery O2 Flow Rate FiO2 08/24/18 13:57 147/80 08/24/18 13:15 101.0 99 21 143/76 97 Room Air 08/24/18 12:30 101.5 93 18 170/77 96 Room Air 08/24/18 12:20 101.5 08/24/18 12:00 101.5 94 164/77 96 Room Air 08/24/18 11:00 100 18 Room Air 08/24/18 11:00 101.5 100 18 172/79 99 Room Air 08/24/18 11:00 101.5 100 18 172/79 Room Air 08/24/18 10:30 97.6 99 18 202/85 98 Room Air 08/24/18 10:13 102.9 99 24 201/93 100 Room Air Height (Feet): 5 Height (Inches): 6.00 Weight (Pounds): 200 Laboratory Tests Test 08/24/18 10:32 White Blood Count 5.5 K/UL (4.8-10.8) Red Blood Count 3.94 M/UL (4.70-6.10) L Hemoglobin 11.8 G/DL (14.2-18.0) L Hematocrit 36.0 % (42.0-52.0) L Mean Corpuscular Volume 91 FL (80-99) Mean Corpuscular Hemoglobin 29.9 PG (27.0-31.0) Mean Corpuscular Hemoglobin Concent 32.8 G/DL (32.0-36.0) Red Cell Distribution Width 14.1 % (11.6-14.8) Platelet Count 113 K/UL (150-450) L Mean Platelet Volume 6.5 FL (6.5-10.1) Neutrophils (%) (Auto) % (45.0-75.0) Lymphocytes (%) (Auto) % (20.0-45.0) Monocytes (%) (Auto) % (1.0-10.0) Eosinophils (%) (Auto) % (0.0-3.0) Basophils (%) (Auto) % (0.0-2.0) Differential Total Cells Counted 100 Neutrophils % (Manual) 94 % (45-75) H Lymphocytes % (Manual) 5 % (20-45) L Monocytes % (Manual) 0 % (1-10) L Eosinophils % (Manual) 1 % (0-3) Basophils % (Manual) 0 % (0-2) Band Neutrophils 0 % (0-8) Platelet Estimate Decreased L Platelet Morphology Normal Red Blood Cell Morphology Normal Sodium Level 138 MMOL/L (136-145) Potassium Level 5.6 MMOL/L (3.5-5.1) H Chloride Level 99 MMOL/L (98-107) Carbon Dioxide Level 21 MMOL/L (21-32) Anion Gap 18 mmol/L (5-15) H Blood Urea Nitrogen 83 mg/dL (7-18) H Creatinine 14.6 MG/DL (0.55-1.30) H Estimat Glomerular Filtration Rate 3.5 mL/min (>60) Glucose Level 114 MG/DL (74-106) H Lactic Acid Level 1.40 mmol/L (0.4-2.0) Calcium Level 7.7 MG/DL (8.5-10.1) L Total Bilirubin 0.6 MG/DL (0.2-1.0) Aspartate Amino Transf (AST/SGOT) 19 U/L (15-37) Alanine Aminotransferase (ALT/SGPT) 17 U/L (12-78) Alkaline Phosphatase 72 U/L (46-116) Total Creatine Kinase 297 U/L (26-308) Creatine Kinase MB 1.5 NG/ML (0.0-3.6) Creatine Kinase MB Relative Index 0.5 Troponin I 0.041 ng/mL (0.000-0.056) Total Protein 8.2 G/DL (6.4-8.2) Albumin 3.6 G/DL (3.4-5.0) Globulin 4.6 g/dL Albumin/Globulin Ratio 0.8 (1.0-2.7) L Lipase 108 U/L (73-393) Current Medications Medications (Trade) Dose Ordered Sig/Kelly Route PRN Reason Start Time Stop Time Status Last Admin Dose Admin Acetaminophen (Tylenol) 650 mg Q4H PRN ORAL Mild Pain (Pain Scale 1-3) 08/24/18 12:30 09/23/18 12:29 Amlodipine Besylate (Norvasc) 10 mg DAILY ORAL 08/25/18 09:00 09/24/18 08:59 Clonidine HCl (Catapres tab) 0.2 mg EVERY 8 HOURS ORAL 08/24/18 14:00 09/23/18 13:59 08/24/18 13:57 Dextrose (Dextrose 50%) 25 ml Q30M PRN IV Hypoglycemia 08/24/18 12:30 09/23/18 12:29 Dextrose (Dextrose 50%) 50 ml Q30M PRN IV Hypoglycemia 08/24/18 12:30 09/23/18 12:29 Famotidine (Pepcid) 40 mg DAILY ORAL 08/25/18 09:00 09/24/18 08:59 Ondansetron HCl (Zofran) 4 mg Q6H PRN IVP Nausea & Vomiting 08/24/18 12:30 09/23/18 12:29 Sevelamer Carbonate (Renvela) 800 mg THREE TIMES A DAY ORAL 08/24/18 13:00 09/23/18 12:59 08/24/18 13:56 Vancomycin HCl (Vanco rx to dose) 1 ea DAILY PRN MISC Per rx protocol 08/24/18 14:00 09/23/18 13:59 Bassem Mac M.D. Aug 24, 2018 13:59
[2018-08-24] MEDS: Piperacillin/Tazobactam 2.25 GM in D5W 55 ML IVPB SCH ×2 (15:16→21:02)
[2018-08-24] MEDS ORDERED: Vancomycin 1.5 GM/D5W 250ML IVPB ONE (16:00)
[2018-08-24] MEDS ORDERED: traMADol 50mg tab ORAL PRN (18:45)
[2018-08-24] MEDS ORDERED: Lidocaine 1% Plain 30 ml INJ SCH (19:00)
--- NOTE | 2018-08-24 19:30 | Consultation ---
DATE OF CONSULTATION: 08/24/2018 INFECTIOUS DISEASE CONSULTATION CONSULTING PHYSICIAN: Bassem Tipton M.D. REQUESTING PHYSICIAN: Sheldon Cervantes M.D. REASON FOR CONSULTATION: Sepsis, hemodialysis catheter infection with fever, and end-stage renal disease. Recommendation for antibiotics treatment. HISTORY OF PRESENT ILLNESS: The patient is a 58-year-old gentleman with past medical history of end-stage renal disease, on hemodialysis Monday, , and Monday with right subclavian tunneled hemodialysis catheter access, presented to [facility] with right-sided neck and shoulder pain after he fell yesterday in the rain and missed his hemodialysis. The patient was going to his hemodialysis center yesterday, but he slipped in the rain and landed on his right hand open. He heard something snapped in his right shoulder and neck at the site of the dialysis catheter. After that he developed swelling and pain which restricted his movement. Today, he was having nausea and vomited in the morning. So, he presented to the emergency room for evaluation and management. The patient had temperature of 103 in the triage. He also was found to have significant swelling on the right neck and supraclavicular area concerning for abscess or hematoma. So, he was admitted to the hospital for further evaluation and management and Infectious Disease consultation was requested for antibiotics treatment and further care. REVIEW OF SYSTEMS: A 14-point of system reviewed were all negative apart from the one I mentioned above in my H and P. PAST MEDICAL HISTORY: Significant for end-stage renal disease, on hemodialysis and hypertension. PAST SURGICAL HISTORY: He had tunneled hemodialysis catheter placed a couple of months ago. FAMILY HISTORY: Not contributory. SOCIAL HISTORY: The patient lives at home with family. No recent drugs, tobacco, or alcohol. ALLERGIES: He is allergic to heparin. MEDICATIONS: The patient on Pepcid, Norvasc, Catapres, Renvela, Tylenol, and Zofran. LABORATORY DATA: Labs showed white count of 5.5, hemoglobin of 11.8, and platelet count of 113,000. BUN of 83 and creatinine of 14.6. AST of 19, ALT of 17, and alkaline phosphatase of 72. IMAGING: Chest x-ray showed no acute process. PHYSICAL EXAMINATION: VITAL SIGNS: Temperature 101, pulse 99, respirations 21, blood pressure 143/76, and saturation 97% on room air. GENERAL: A middle-aged male, up in bed, awake, alert, not in acute distress, complaining of right-sided shoulder pain and swelling. HEENT: Normocephalic and atraumatic. Pupils reactive to light equally. Moist oral mucosa. No exudate or thrush. NECK: Supple. No lymphadenopathy. Right-sided swelling at the root of the neck with local tenderness just above the hemodialysis catheter site. No evidence of pus or draining from the dialysis site, but redness, erythema, and tenderness. Decreased range of motion of his right shoulder. CARDIOVASCULAR: Regular rate and rhythm. No murmur. No gallop. LUNGS: Clear bilaterally. No wheezing or rhonchi. Normal breathing effort. Diminished breathing sounds at the bases ABDOMEN: Soft, nontender, and nondistended. Normal bowel sounds. No hepatosplenomegaly or ascites. EXTREMITIES: No edema or cyanosis. ASSESSMENT AND RECOMMENDATION: 1. Hemodialysis catheter site pain, swelling, and tenderness, suspect infection, possible abscess versus hematoma. We will start the patient on vancomycin and Zosyn empiric coverage and order venous Doppler of the right subclavian vein. Recommend Vascular evaluation. His tunneled catheter may be need to be removed. 2. Fever, suspect due to the above with possible sepsis. Continue wide-spectrum antibiotics and Tylenol as needed. Pending culture. 3. End-stage renal disease, on hemodialysis. Renal is following. Unclear whether his catheter is malfunctioning at this point or not. We will leave that up to the Nephrology team. 4. Sepsis, suspect due to the above. Continue vancomycin and Zosyn. Pending culture and other studies. Thank you for the consult. ID will continue to follow. Please feel free to call with any question. Bassem Tipton M.D. DR: GITA JOB#: [id number] CC:
[2018-08-24] MEDS ORDERED: Heparin Sod 1000 units/ml 10ml INJ SCH (19:45)
--- NOTE | 2018-08-24 20:09 | General Progress Note ---
Progress Note Progress Note Asked by Cervantes to eval pt Infected tender right chest permcath with cellulitis Fever 102 with rigors ESRD Inaccessible left arm avf Right chest permcath removed and tip cultured Temporary right femoral Freedom cath placed without difficulty Rec Hd via Freedom cath Abx per ID Arm duplex Echo Once negative blood culture and cleared with ID will need new left upper arm av shunt and new permcath d/w pt at length d/w nurses at bedside Kel Mullins MD Aug 24, 2018 20:09
--- NOTE | 2018-08-24 20:15 | History and Physical Report ---
DATE OF ADMISSION: 08/24/2018 REASON FOR ADMISSION: Dialysis catheter soreness. HISTORY OF PRESENT ILLNESS: The patient is a 58-year-old gentleman, who undergoes hemodialysis Monday, , and Monday, presented to the emergency room for further evaluation and care of his right-sided tunneled dialysis catheter for some redness and soreness. Being admitted for evaluation of possible catheter infection. Denies any chest pain, shortness of breath, nausea, vomiting, or diarrhea. The patient did say he has been compliant with his hemodialysis sessions. PAST MEDICAL HISTORY: 1. Hypertension. 2. End-stage renal disease, on hemodialysis. 3. Anemia of chronic kidney disease. 4. Secondary hyperparathyroidism. PAST SURGICAL HISTORY: 1. Left AV fistula. 2. Right-sided tunneled dialysis catheter. ALLERGIES: Heparin. SOCIAL HISTORY: No current tobacco, alcohol,or illicit drug use. FAMILY HISTORY: Positive for hypertension. REVIEW OF SYSTEMS: NEUROLOGIC: The patient denies headache, change in vision, syncope, or presyncopal episodes. CARDIOVASCULAR: No current chest pain, palpitations, or angina. PULMONARY: No difficulty breathing, productive cough, or sputum. GASTROINTESTINAL/GENITOURINARY: No change in urine or bowels habits. No nausea, vomiting, or diarrhea. ENDOCRINOLOGY: No night sweats, fevers, or chills. MUSCULOSKELETAL: The patient is complaining of right upper chest catheter site soreness. PHYSICAL EXAMINATION: VITAL SIGNS: Blood pressure 147/70, pulse 99, respiratory rate 21, temperature 101.0, and 97% on room air. GENERAL: The patient is awake, alert, and not otherwise in distress. HEENT: Extraocular muscles intact. No lymphadenopathy noted. CARDIOVASCULAR: S1 and S2. No rubs or gallops. PULMONARY: Clear to auscultation bilaterally. No rales, rhonchi, or wheezes. ABDOMEN: Nondistended and nontender. EXTREMITY: No edema. LABORATORY DATA: Laboratories dated 08/24/2018, white cell count 5.5, hemoglobin 11.8, and platelet count 113,000. Sodium 130, potassium 5.6, BUN 83, creatinine 14.6, and calcium 7.7. ASSESSMENT AND PLAN: 1. End-stage renal disease, on hemodialysis. Due to elevated potassium, the patient will undergo a 2-hour session today and be placed on a regular session tomorrow. 2. Anemia of chronic kidney disease. Hemoglobin currently 11.8. No requirement for Epo. 3. Hypertension. Continue outpatient medications and adjust as deemed appropriate. 4. Secondary hyperparathyroidism. The patient is on Renvela. 5. Sepsis. The patient is febrile. Questionable dialysis catheter infection prior to admission. Blood cultures have been drawn. Ultrasound of catheter site ordered. Defer antibiotic management to Infectious Disease. Sheldon Cervantes MD DR: EMMANUEL JOB#: [id number] CC:
[2018-08-25] VITALS: BP 149/84
[2018-08-25 04:00] VITALS: BP 123/73
[2018-08-25] MEDS: Piperacillin/Tazobactam 2.25 GM in D5W 55 ML IVPB SCH ×4 (06:00→21:38)
[2018-08-25] MEDS: cloNIDine 0.2mg Tab ORAL SCH ×3 (06:09→21:37)
[2018-08-25 08:00] VITALS: BP 105/67
[2018-08-25 08:31] LABS: HEMATOCRIT 35.2 % (42.0-52.0); HEMOGLOBIN 11.5 G/DL (14.2-18.0); MEAN CORPUSCULAR VOLUME 91 FL (80-99); PLATELET COUNT 88 K/UL (150-450); RED BLOOD COUNT 3.87 M/UL (4.70-6.10); WHITE BLOOD COUNT 9.8 K/UL (4.8-10.8)
[2018-08-25 08:59] LABS: ANION GAP 18 mmol/L (5-15); BLOOD UREA NITROGEN 65 mg/dL (7-18); CALCIUM 7.7 MG/DL (8.5-10.1); CARBON DIOXIDE 19 MMOL/L (21-32); CHLORIDE 98 MMOL/L (98-107); CREATININE 12.7 MG/DL (0.55-1.30); POTASSIUM 5.2 MMOL/L (3.5-5.1); SODIUM 135 MMOL/L (136-145)
[2018-08-25] MEDS ORDERED: Heparin Sod 1000 units/ml 10ml INJ SCH (09:00)
--- NOTE | 2018-08-25 09:22 | Nephrology Progress Note ---
Assessment/Plan Assessment/Plan A/P 1) Sepsis- tunnelled dialysis catheter infection - Abx per ID - tunnelled catheter removed and non-yanique- fem placed - will try line free for few days once BUN and K+ stabilized - appreciate Vasc surgery assistance 2) Hyperk+- on HD today 3) ESRD- patient seen during HD session today 4) Anemia- EPO if Hgb <10 Subjective Date patient seen: Aug 25, 2018 Time patient seen: 09:18 ROS Limited/Unobtainable: No Allergies: Coded Allergies: HEPARIN (Verified Allergy, Unknown, 06/30/17) All Systems: reviewed and negative except above Subjective Patient seen during current HD session Objective Last 24 Hour Vital Signs Date Time Temp Pulse Resp B/P (MAP) Pulse Ox O2 Delivery O2 Flow Rate FiO2 08/25/18 06:09 123/73 08/25/18 06:05 101.7 08/25/18 04:00 101.7 82 20 123/73 (90) 94 08/25/18 04:00 85 08/25/18 00:00 101.4 109 20 149/84 (105) 95 08/25/18 00:00 112 08/24/18 21:00 Room Air 08/24/18 20:00 92 08/24/18 20:00 102.3 88 20 145/72 (96) 94 08/24/18 18:00 97.9 08/24/18 16:00 101.0 103 20 140/78 (98) 92 08/24/18 16:00 76 08/24/18 13:57 147/80 08/24/18 13:15 101.0 99 21 143/76 97 Room Air 08/24/18 13:00 102.2 107 18 147/80 (102) 92 08/24/18 12:51 Room Air 08/24/18 12:30 101.5 93 18 170/77 96 Room Air 08/24/18 12:20 101.5 08/24/18 12:00 101.5 94 164/77 96 Room Air 08/24/18 11:00 100 18 Room Air 08/24/18 11:00 101.5 100 18 172/79 99 Room Air 08/24/18 11:00 101.5 100 18 172/79 Room Air 08/24/18 10:30 97.6 99 18 202/85 98 Room Air 08/24/18 10:30 99 18 Room Air 08/24/18 10:13 102.9 99 24 201/93 100 Room Air Intake and Output 08/24/18 08/25/18 19:00 07:00 Intake Total 150 ml Output Total 0 ml 0 ml Balance 0 ml 150 ml Intake Oral 150 ml Output Urine Total 0 ml 0 ml Laboratory Tests 08/24/18 10:32: White Blood Count 5.5, Red Blood Count 3.94L, Hemoglobin 11.8L, Hematocrit 36.0L , Mean Corpuscular Volume 91, Mean Corpuscular Hemoglobin 29.9, Mean Corpuscular Hemoglobin Concent 32.8, Red Cell Distribution Width 14.1, Platelet Count 113L, Mean Platelet Volume 6.5, Neutrophils (%) (Auto) , Lymphocytes (%) ( Auto) , Monocytes (%) (Auto) , Eosinophils (%) (Auto) , Basophils (%) (Auto) , Differential Total Cells Counted 100, Neutrophils % (Manual) 94H, Lymphocytes % (Manual) 5L, Monocytes % (Manual) 0L, Eosinophils % (Manual) 1, Basophils % ( Manual) 0, Band Neutrophils 0, Platelet Estimate DecreasedL, Platelet Morphology Normal, Red Blood Cell Morphology Normal, Sodium Level 138, Potassium Level 5.6H, Chloride Level 99, Carbon Dioxide Level 21, Anion Gap 18H , Blood Urea Nitrogen 83H, Creatinine 14.6H, Estimat Glomerular Filtration Rate 3.5, Glucose Level 114H, Lactic Acid Level 1.40, Calcium Level 7.7L, Total Bilirubin 0.6, Aspartate Amino Transf (AST/SGOT) 19, Alanine Aminotransferase ( ALT/SGPT) 17, Alkaline Phosphatase 72, Total Creatine Kinase 297, Creatine Kinase MB 1.5, Creatine Kinase MB Relative Index 0.5, Troponin I 0.041, Total Protein 8.2, Albumin 3.6, Globulin 4.6, Albumin/Globulin Ratio 0.8L, Lipase 108 , Heparin-PF4 Antibody Screen [Pending] 08/25/18 06:53: White Blood Count 9.8#, Red Blood Count 3.87L, Hemoglobin 11.5L, Hematocrit 35.2L, Mean Corpuscular Volume 91, Mean Corpuscular Hemoglobin 29.8, Mean Corpuscular Hemoglobin Concent 32.8, Red Cell Distribution Width 14.0, Platelet Count 88L, Mean Platelet Volume 7.4, Neutrophils (%) (Auto) , Lymphocytes (%) ( Auto) , Monocytes (%) (Auto) , Eosinophils (%) (Auto) , Basophils (%) (Auto) , Neutrophils % (Manual) [Pending], Lymphocytes % (Manual) [Pending], Platelet Estimate [Pending], Platelet Morphology [Pending], Sodium Level 135L, Potassium Level 5.2H, Chloride Level 98, Carbon Dioxide Level 19L, Anion Gap 18H, Blood Urea Nitrogen 65H, Creatinine 12.7H, Estimat Glomerular Filtration Rate 4.1, Glucose Level 84, Calcium Level 7.7L, Random Vancomycin Level 19.9 Height (Feet): 5 Height (Inches): 6.00 Weight (Pounds): 200 General Appearance: no apparent distress, alert EENT: normal ENT inspection Neck: normal alignment, supple Cardiovascular: normal rate, regular rhythm Respiratory/Chest: lungs clear, normal breath sounds Abdomen: non tender, soft Edema: no edema noted Arm (L), no edema noted Arm (R), no edema noted Leg (L), no edema noted Leg (R), no edema noted Pedal (L), no edema noted Pedal (R), no edema noted Generalized Sheldon Cervantes MD Aug 25, 2018 09:22
--- NOTE | 2018-08-25 10:28 | Consultation ---
Consult Note Consult Note [id number] jOB id René Lin MD Aug 25, 2018 10:28
[2018-08-25 12:00] VITALS: BP 102/65
[2018-08-25 12:51] LABS: FERRITIN > 2000 NG/ML (8-388)
[2018-08-25 13:22] LABS: % IRON SATURATION 9 % (15-50); IRON 15 ug/dL (50-175); TOTAL IRON BINDING CAPACITY 172 ug/dL (250-450)
--- NOTE | 2018-08-25 15:34 | Infectious Diseases Prog Note ---
Assessment/Plan Problems: (1) Sepsis Assessment & Plan: with gram negative rods, suspect due to the above, continue zosyn pending cultures and other studies (2) Hemodialysis catheter infection Assessment & Plan: S/P removal , due to gram negative rods , with localized swelling , pain and redness , , will continue zosyn empirically pending culture results . vascular is following (3) Fever Assessment & Plan: suspect due to the above with possible sepsis, continue wide spectrum antibiotics and tylenol as needed (4) ESRD (end stage renal disease) Assessment & Plan: on HD , renal is following Subjective Constitutional: Reports: no symptoms HEENT: Reports: no symptoms Respiratory: Reports: no symptoms Breasts: Reports: no symptoms Cardiovascular: Reports: no symptoms Gastrointestinal/Abdominal: Reports: no symptoms Genitourinary: Reports: no symptoms Neurologic: Reports: no symptoms Psychiatric: Reports: no symptoms Skin: Reports: no symptoms Endocrine: Reports: no symptoms Hematologic: Reports: no symptoms Musculoskeletal: Reports: no symptoms Allergies: Coded Allergies: HEPARIN (Verified Allergy, Unknown, 06/30/17) Subjective he was feeling better with less pain and swelling at his right chest area Objective Vital Signs Last 24 Hour Vital Signs Date Time Temp Pulse Resp B/P (MAP) Pulse Ox O2 Delivery O2 Flow Rate FiO2 08/25/18 13:48 102/65 08/25/18 12:00 84 08/25/18 12:00 98.4 82 20 102/65 (77) 96 08/25/18 09:00 Room Air 08/25/18 08:00 98.9 93 20 105/67 (80) 96 08/25/18 08:00 76 08/25/18 06:09 123/73 08/25/18 06:05 101.7 08/25/18 04:00 101.7 82 20 123/73 (90) 94 08/25/18 04:00 85 08/25/18 00:00 101.4 109 20 149/84 (105) 95 08/25/18 00:00 112 08/24/18 21:00 Room Air 08/24/18 20:00 92 08/24/18 20:00 102.3 88 20 145/72 (96) 94 08/24/18 18:00 97.9 08/24/18 16:00 101.0 103 20 140/78 (98) 92 08/24/18 16:00 76 Height (Feet): 5 Height (Inches): 6.00 Weight (Pounds): 186 General Appearance: WD/WN, no acute distress HEENT: normocephalic, atraumatic, anicteric, mucous membranes moist, PERRL Respiratory/Chest: chest wall non-tender, lungs clear, normal breath sounds, no respiratory distress, no accessory muscle use Cardiovascular: normal peripheral pulses, normal rate, regular rhythm, no gallop/murmur, no JVD Abdomen: normal bowel sounds, soft, non tender, no organomegaly, non distended , no mass, no scars Extremities: no cyanosis, no clubbing Skin: no rash, no lesions, no ulcers Neurologic/Psychiatric: alert, oriented x 3, responsive Lymphatic: no neck adenopathy, no groin adenopathy Microbiology Date/Time Source Procedure Growth Status 08/24/18 10:32 Blood Blood Culture - Preliminary Resulted 08/24/18 10:20 Blood Blood Culture - Preliminary Resulted 08/24/18 19:50 Chest Gram Stain Pending Resulted 08/24/18 19:50 Catheter Tip Culture - Preliminary Gram Negative Bacillus 1 Resulted Laboratory Tests Test 08/25/18 06:53 08/25/18 12:05 White Blood Count 9.8 K/UL (4.8-10.8) # Red Blood Count 3.87 M/UL (4.70-6.10) L Hemoglobin 11.5 G/DL (14.2-18.0) L Hematocrit 35.2 % (42.0-52.0) L Mean Corpuscular Volume 91 FL (80-99) Mean Corpuscular Hemoglobin 29.8 PG (27.0-31.0) Mean Corpuscular Hemoglobin Concent 32.8 G/DL (32.0-36.0) Red Cell Distribution Width 14.0 % (11.6-14.8) Platelet Count 88 K/UL (150-450) L Mean Platelet Volume 7.4 FL (6.5-10.1) Neutrophils (%) (Auto) % (45.0-75.0) Lymphocytes (%) (Auto) % (20.0-45.0) Monocytes (%) (Auto) % (1.0-10.0) Eosinophils (%) (Auto) % (0.0-3.0) Basophils (%) (Auto) % (0.0-2.0) Differential Total Cells Counted 100 Neutrophils % (Manual) 96 % (45-75) H Lymphocytes % (Manual) 2 % (20-45) L Monocytes % (Manual) 2 % (1-10) Eosinophils % (Manual) 0 % (0-3) Basophils % (Manual) 0 % (0-2) Band Neutrophils 0 % (0-8) Platelet Estimate Decreased L Platelet Morphology Normal Hypochromasia 1+ Anisocytosis 1+ Sodium Level 135 MMOL/L (136-145) L Potassium Level 5.2 MMOL/L (3.5-5.1) H Chloride Level 98 MMOL/L (98-107) Carbon Dioxide Level 19 MMOL/L (21-32) L Anion Gap 18 mmol/L (5-15) H Blood Urea Nitrogen 65 mg/dL (7-18) H Creatinine 12.7 MG/DL (0.55-1.30) H Estimat Glomerular Filtration Rate 4.1 mL/min (>60) Glucose Level 84 MG/DL (74-106) Calcium Level 7.7 MG/DL (8.5-10.1) L Random Vancomycin Level 19.9 ug/mL Haptoglobin Pending Fibrinogen 587 mg/dL (200-400) H Uric Acid 3.2 MG/DL (2.6-7.2) Calcium (Send out) Pending Iron Level 15 ug/dL (50-175) L Total Iron Binding Capacity 172 ug/dL (250-450) L Percent Iron Saturation 9 % (15-50) L Unsaturated Iron Binding 157 ug/dL (112-346) Ferritin > 2000 NG/ML (8-388) H Vitamin B12 Level 292 PG/ML (193-986) Folate 14.2 NG/ML (8.6-58.9) Thyroid Stimulating Hormone (TSH) 0.576 uiU/mL (0.358-3.740) Parathyroid Hormone (Intact) Pending Hepatitis A IgM Antibody Pending Hepatitis B Surface Antigen Pending Hepatitis B Core IgM Antibody Pending Hepatitis C Antibody Pending HIV (1&2) Antibody Rapid Negative (NEGATIVE) Current Medications Medications (Trade) Dose Ordered Sig/Kelly Route PRN Reason Start Time Stop Time Status Last Admin Dose Admin Acetaminophen (Tylenol) 650 mg Q4H PRN ORAL Mild Pain (Pain Scale 1-3) 08/24/18 12:30 09/23/18 12:29 08/25/18 05:35 Amlodipine Besylate (Norvasc) 10 mg DAILY ORAL 08/25/18 09:00 09/24/18 08:59 Clonidine HCl (Catapres tab) 0.2 mg EVERY 8 HOURS ORAL 08/24/18 14:00 09/23/18 13:59 08/25/18 06:09 Dextrose (Dextrose 50%) 25 ml Q30M PRN IV Hypoglycemia 08/24/18 12:30 09/23/18 12:29 Dextrose (Dextrose 50%) 50 ml Q30M PRN IV Hypoglycemia 08/24/18 12:30 09/23/18 12:29 Famotidine (Pepcid) 40 mg DAILY ORAL 08/25/18 09:00 09/24/18 08:59 Heparin Sodium (Porcine) (Heparin Sod 1000 units/ml 10ml) 1,000 unit ONCE INJ 08/25/18 09:00 08/25/18 23:59 Ondansetron HCl (Zofran) 4 mg Q6H PRN IVP Nausea & Vomiting 08/24/18 12:30 09/23/18 12:29 Piperacillin Sod/ Tazobactam Sod 2.25 gm/Dextrose 55 ml @ 110 mls/hr Q8HR IVPB 08/24/18 15:00 08/29/18 14:59 08/25/18 13:48 Sevelamer Carbonate (Renvela) 800 mg THREE TIMES A DAY ORAL 08/24/18 13:00 09/23/18 12:59 08/25/18 13:47 Tramadol HCl (Ultram) 50 mg BIDPRN PRN ORAL Moderate Pain (Pain Scale 4-6) 08/24/18 18:45 08/31/18 18:44 Vancomycin HCl (Vanco rx to dose) 1 ea DAILY PRN MISC Per rx protocol 08/24/18 14:00 09/23/18 13:59 Bassem Tipton M.D. Aug 25, 2018 15:34
[2018-08-25 16:00] VITALS: BP 110/63
[2018-08-25] MEDS: Bacitracin Oint UD TOPIC SCH (17:41)
--- NOTE | 2018-08-25 19:52 | Vascular Surgery Progress Note ---
Subjective Subjective Feels better No more fever HD via fem Freedom cath Gram negative rods+ cath tip Objective Objective Last 24 Hour Vital Signs Date Time Temp Pulse Resp B/P (MAP) Pulse Ox O2 Delivery O2 Flow Rate FiO2 08/25/18 16:00 77 08/25/18 16:00 99.8 74 20 110/63 (79) 97 08/25/18 13:48 102/65 08/25/18 12:00 84 08/25/18 12:00 98.4 82 20 102/65 (77) 96 08/25/18 09:00 Room Air 08/25/18 08:00 98.9 93 20 105/67 (80) 96 08/25/18 08:00 76 08/25/18 06:09 123/73 08/25/18 06:05 101.7 08/25/18 04:00 101.7 82 20 123/73 (90) 94 08/25/18 04:00 85 08/25/18 00:00 101.4 109 20 149/84 (105) 95 08/25/18 00:00 112 08/24/18 21:00 Room Air 08/24/18 20:00 92 08/24/18 20:00 102.3 88 20 145/72 (96) 94 Intake and Output 08/24/18 08/25/18 18:59 06:59 Intake Total 150 ml Output Total 0 ml 0 ml Balance 0 ml 150 ml Intake Oral 150 ml Output Urine Total 0 ml 0 ml Laboratory Tests Test 08/25/18 06:53 08/25/18 12:05 White Blood Count 9.8 K/UL (4.8-10.8) # Red Blood Count 3.87 M/UL (4.70-6.10) L Hemoglobin 11.5 G/DL (14.2-18.0) L Hematocrit 35.2 % (42.0-52.0) L Mean Corpuscular Volume 91 FL (80-99) Mean Corpuscular Hemoglobin 29.8 PG (27.0-31.0) Mean Corpuscular Hemoglobin Concent 32.8 G/DL (32.0-36.0) Red Cell Distribution Width 14.0 % (11.6-14.8) Platelet Count 88 K/UL (150-450) L Mean Platelet Volume 7.4 FL (6.5-10.1) Neutrophils (%) (Auto) % (45.0-75.0) Lymphocytes (%) (Auto) % (20.0-45.0) Monocytes (%) (Auto) % (1.0-10.0) Eosinophils (%) (Auto) % (0.0-3.0) Basophils (%) (Auto) % (0.0-2.0) Differential Total Cells Counted 100 Neutrophils % (Manual) 96 % (45-75) H Lymphocytes % (Manual) 2 % (20-45) L Monocytes % (Manual) 2 % (1-10) Eosinophils % (Manual) 0 % (0-3) Basophils % (Manual) 0 % (0-2) Band Neutrophils 0 % (0-8) Platelet Estimate Decreased L Platelet Morphology Normal Hypochromasia 1+ Anisocytosis 1+ Sodium Level 135 MMOL/L (136-145) L Potassium Level 5.2 MMOL/L (3.5-5.1) H Chloride Level 98 MMOL/L (98-107) Carbon Dioxide Level 19 MMOL/L (21-32) L Anion Gap 18 mmol/L (5-15) H Blood Urea Nitrogen 65 mg/dL (7-18) H Creatinine 12.7 MG/DL (0.55-1.30) H Estimat Glomerular Filtration Rate 4.1 mL/min (>60) Glucose Level 84 MG/DL (74-106) Calcium Level 7.7 MG/DL (8.5-10.1) L Random Vancomycin Level 19.9 ug/mL Haptoglobin Pending Fibrinogen 587 mg/dL (200-400) H Uric Acid 3.2 MG/DL (2.6-7.2) Calcium (Send out) Pending Iron Level 15 ug/dL (50-175) L Total Iron Binding Capacity 172 ug/dL (250-450) L Percent Iron Saturation 9 % (15-50) L Unsaturated Iron Binding 157 ug/dL (112-346) Ferritin > 2000 NG/ML (8-388) H Vitamin B12 Level 292 PG/ML (193-986) Folate 14.2 NG/ML (8.6-58.9) Thyroid Stimulating Hormone (TSH) 0.576 uiU/mL (0.358-3.740) Parathyroid Hormone (Intact) Pending Hepatitis A IgM Antibody Pending Hepatitis B Surface Antigen Pending Hepatitis B Core IgM Antibody Pending Hepatitis C Antibody Pending HIV (1&2) Antibody Rapid Negative (NEGATIVE) Height (Feet): 5 Height (Inches): 6.00 Weight (Pounds): 186 Objective Comfortable Right chest induration Less erythema cvs rrr lungs cta abd soft nontender Left arm weak bruit Right fem cath c/d/i feet warm intact dopplers Assessment/Plan Assessment Admitted with Infected tender right chest permcath with cellulitis & Fever 102 with rigors Gram negative rods sepsis ESRD Inaccessible left arm avf HTN Hx of left arm access placement by other physicians Hx of right chest permcath for over one yr s/p Right chest permcath removal and tip cultured Temporary right femoral Freedom cath placed without difficulty Plan Hd via Freedom cath Abx per ID Arm duplex Echo r/o vegetations/endocarditis Once negative blood culture and cleared with ID will need new left upper arm av shunt and new permcath d/w pt at length d/w nurses at bedside d/w pmd and ID Kel Mullins MD Aug 25, 2018 19:52
[2018-08-25 20:00] VITALS: BP 103/63
--- NOTE | 2018-08-25 20:00 | Consultation ---
DATE OF CONSULTATION: 08/25/2018 NOTE: "POOR AUDIO QUALITY" HEMATOLOGY/ONCOLOGY CONSULTATION CONSULTING PHYSICIAN: Rneé Lin M.D. REQUESTING PHYSICIAN: Sheldon Cervantes MD. REASON FOR CONSULTATION: Evaluation of thrombocytopenia. IDENTIFICATION: Dear Dr. Fatima: Thank you for the courtesy of this consultation. The patient is a pleasant 58-year-old male with past medical history significant for end-stage renal disease, on dialysis Monday, , and Monday with a right subclavian tunneled hemodialysis catheter, who presented to [facility] with right-sided neck pain and shoulder pain after he fell yesterday in the rain, missed his dialysis. He was going to hemodialysis center and he slipped again in the rain and landed on his right open hand, heard something snap. He developed swelling and pain, which was noted today and noted to have nausea and vomiting and at the ER, he was given Tylenol, noted to have temperature of 103 degrees Fahrenheit. He was admitted to the hospital for further evaluation and care. Seen by ID service for antibiotics and Hematology Service consulted given ongoing evidence of anemia as well as thrombocytopenia. PAST MEDICAL HISTORY: Hypertension, end-stage renal disease, on hemodialysis, anemia of chronic kidney disease, secondary hyperparathyroidism. PAST SURGICAL HISTORY: 1. AV fistula, left side. 2. Right-sided tunneled dialysis catheter. ALLERGIES: No known drug allergies. SOCIAL HISTORY: No alcohol, tobacco, or illicit drug use. FAMILY HISTORY: Positive for hypertension. REVIEW OF SYSTEMS: CONSTITUTIONAL: No fevers, chills, or night sweats. SKIN: No rashes, bumps, or itching. HEENT: No headache, hearing or visual changes. BREASTS: No lumps, pain, or discharge. PULMONARY: No cough, sputum, or shortness of breath. GASTROINTESTINAL: No nausea, vomiting, or diarrhea. GENITOURINARY: No dysuria, frequency, or urgency. MUSCULOSKELETAL: No joint swelling, muscle pain, or trauma. PHYSICAL EXAMINATION: VITAL SIGNS: Reviewed. GENERAL: No acute distress. LUNGS: Decreased breath sounds. CARDIOVASCULAR: Regular rate. No S3 or S4. ABDOMEN: Soft, nontender, and nondistended. EXTREMITIES: No cyanosis, swelling, or edema. SKIN: Hemodialysis catheter noted, right femoral Freedom catheter placed in the right groin. LABORATORY DATA: Reviewed. WBC 9.8, hemoglobin 11.5, hematocrit 35, and platelet count 88,000. Potassium 5.2, sodium 135, BUN of 65, creatinine 12.7, and calcium 7.7. Toxicology reviewed. HIT antibody pending. Chemistry reviewed. BUN 65 and creatinine 12.7. ASSESSMENT AND RECOMMENDATIONS: 1. Thrombocytopenia, potentially secondary to underlying infection, catheter of dialysis infection. It has been removed and antibiotics per ID team. Freedom catheter. 2. Anemia due to underlying chronic disease. Obtain anemia panel as needed. No reason for Epogen at this time. 3. Hypertension. Systolic blood pressure goal less than 140. Closely monitor for improvement. Continue antihypertensives as needed. 4. Secondary hyperparathyroidism, placed on Renvela. 5. Sepsis secondary to underlying catheter infection. Closely monitor as per primary team. 6. Hyperkalemia, status post hemodialysis. I appreciate the consultation. René Lin M.D. DR: JASON JOB#: [id number] CC:
[2018-08-26] VITALS: BP 125/62
[2018-08-26 04:00] VITALS: BP 130/72
[2018-08-26] MEDS: Piperacillin/Tazobactam 2.25 GM in D5W 55 ML IVPB SCH ×2 (06:00→14:00)
[2018-08-26] MEDS: cloNIDine 0.2mg Tab ORAL SCH ×2 (06:09→14:00)
[2018-08-26 07:58] VITALS: BP 121/66
[2018-08-26] MEDS: Bacitracin Oint UD TOPIC SCH (08:18)
[2018-08-26 08:25] LABS: HEMOGLOBIN 10.9 G/DL (14.2-18.0); MEAN CORPUSCULAR VOLUME 90 FL (80-99); PLATELET COUNT 65 K/UL (150-450); RED BLOOD COUNT 3.66 M/UL (4.70-6.10); WHITE BLOOD COUNT 4.6 K/UL (4.8-10.8)
[2018-08-26 08:59] LABS: ANION GAP 13 mmol/L (5-15); BLOOD UREA NITROGEN 57 mg/dL (7-18); CALCIUM 7.5 MG/DL (8.5-10.1); CARBON DIOXIDE 26 MMOL/L (21-32); CHLORIDE 97 MMOL/L (98-107); CREATININE 10.6 MG/DL (0.55-1.30); POTASSIUM 4.4 MMOL/L (3.5-5.1); SODIUM 136 MMOL/L (136-145)
--- NOTE | 2018-08-26 10:02 | Nephrology Progress Note ---
Assessment/Plan Assessment/Plan A/P 1) Sepsis- tunnelled dialysis catheter infection - Abx per ID - patient leaving AMA - long discussion explain high risk of . HD today for 2 hrs then remove lyle 2) Hyperk+- resolved 3) ESRD- HD today 4) Anemia- EPO if Hgb <10 Low plts due to sepsis, per ID and Heme Patient leaving AMA despite long discussion of risk of Subjective Date patient seen: Aug 26, 2018 Time patient seen: 09:58 ROS Limited/Unobtainable: No Allergies: Coded Allergies: HEPARIN (Verified Allergy, Unknown, 06/30/17) Subjective Patient leaving AMA Objective Last 24 Hour Vital Signs Date Time Temp Pulse Resp B/P (MAP) Pulse Ox O2 Delivery O2 Flow Rate FiO2 08/26/18 09:18 Room Air 08/26/18 08:18 62 121/66 08/26/18 08:00 62 08/26/18 07:58 98.7 62 22 121/66 (84) 100 08/26/18 06:09 122/66 08/26/18 04:00 97.6 60 22 130/72 (91) 100 08/26/18 04:00 61 08/26/18 00:00 72 08/26/18 00:00 99.1 74 22 125/62 (83) 95 08/25/18 22:09 98.9 08/25/18 21:37 103/63 08/25/18 21:00 Room Air 08/25/18 20:00 76 08/25/18 20:00 100.6 82 22 103/63 (76) 95 08/25/18 16:00 77 08/25/18 16:00 99.8 74 20 110/63 (79) 97 08/25/18 13:48 102/65 08/25/18 12:00 84 08/25/18 12:00 98.4 82 20 102/65 (77) 96 Intake and Output 08/25/18 08/26/18 19:00 07:00 Intake Total 360 ml Output Total 0 ml Balance 360 ml 0 ml Intake Oral 360 ml Output Urine Total 0 ml Laboratory Tests 08/25/18 12:05: Haptoglobin [Pending], Fibrinogen 587H, Uric Acid 3.2, Calcium (Send out) [ Pending], Iron Level 15L, Total Iron Binding Capacity 172L, Percent Iron Saturation 9L, Unsaturated Iron Binding 157, Ferritin > 2000H, Vitamin B12 Level 292, Folate 14.2, Thyroid Stimulating Hormone (TSH) 0.576, Parathyroid Hormone (Intact) [Pending], Hepatitis A IgM Antibody [Pending], Hepatitis B Surface Antigen [Pending], Hepatitis B Core IgM Antibody [Pending], Hepatitis C Antibody [Pending], HIV (1&2) Antibody Rapid Negative 08/26/18 07:40: White Blood Count 4.6#L, Red Blood Count 3.66L, Hemoglobin 10.9L, Hematocrit 33.0L, Mean Corpuscular Volume 90, Mean Corpuscular Hemoglobin 29.7, Mean Corpuscular Hemoglobin Concent 32.9, Red Cell Distribution Width 14.0, Platelet Count 65L, Mean Platelet Volume 8.7, Neutrophils (%) (Auto) , Lymphocytes (%) ( Auto) , Monocytes (%) (Auto) , Eosinophils (%) (Auto) , Basophils (%) (Auto) , Differential Total Cells Counted 100, Neutrophils % (Manual) 90H, Lymphocytes % (Manual) 3L, Monocytes % (Manual) 6, Eosinophils % (Manual) 1, Basophils % ( Manual) 0, Band Neutrophils 0, Platelet Estimate DecreasedL, Platelet Morphology Normal, Anisocytosis 1+, Sodium Level 136, Potassium Level 4.4, Chloride Level 97L, Carbon Dioxide Level 26, Anion Gap 13, Blood Urea Nitrogen 57H, Creatinine 10.6H, Estimat Glomerular Filtration Rate 5.1, Glucose Level 78 , Calcium Level 7.5L Height (Feet): 5 Height (Inches): 6.00 Weight (Pounds): 184 General Appearance: no apparent distress, alert EENT: TMs normal Neck: normal alignment, supple Cardiovascular: normal rate, regular rhythm Respiratory/Chest: lungs clear, normal breath sounds Abdomen: non tender, soft Edema: 1+ Arm (L), 1+ Arm (R), 1+ Leg (L), 1+ Leg (R), 1+ Pedal (L), 1+ Pedal ( R), 1+ Generalized Sheldon Cervantes MD Aug 26, 2018 10:02
[2018-08-26] MEDS ORDERED: Piperacillin/Tazobactam 2.25 GM in D5W 55 ML IVPB ONE (10:15)
[2018-08-26 12:00] VITALS: BP 144/78
--- NOTE | 2018-08-26 12:18 | General Progress Note ---
Assessment/Plan Assessment/Plan ASSESSMENT AND RECOMMENDATIONS: 1. Thrombocytopenia, potentially secondary to underlying infection, catheter of dialysis infection. It has been removed and antibiotics per ID team. Irma Loja catheter palced --> hepatitis and hiv are both negative --> blood cultures + per Id, on antibiotics --> HIT ab test pending --> recommend to stay before platelet count stabilizes, he is adamant to leave [facility] 2. Anemia due to underlying chronic disease. Obtain anemia panel as needed. --> No reason for Epogen at this time. 3. Hypertension. Systolic blood pressure goal less than 140. Closely monitor for improvement. --> Continue antihypertensives as needed. 4. Secondary hyperparathyroidism, placed on Renvela. 5. Sepsis secondary to underlying catheter infection. --> Closely monitor as per primary team and ID 6. Hyperkalemia, status post hemodialysis. I appreciate the consultation. Subjective Constitutional: Denies: no symptoms, chills, diaphoresis, fever, malaise, weakness, other HEENT: Denies: no symptoms, eye pain, blurred vision, tearing, double vision, ear pain, ear discharge, nose pain, nose congestion, throat pain, throat swelling, mouth pain, mouth swelling, other Cardiovascular: Denies: no symptoms, chest pain, edema, irregular heart rate, lightheadedness, palpitations, syncope, other Respiratory: Denies: no symptoms, cough, orthopnea, shortness of breath, SOB with excertion, SOB at rest, sputum, stridor, wheezing, other Gastrointestinal/Abdominal: Denies: no symptoms, abdomen distended, abdominal pain, black stools, tarry stools, blood in stool, constipated, diarrhea, difficulty swallowing, nausea, poor appetite, poor fluid intake, rectal bleeding , vomiting, other Genitourinary: Denies: no symptoms, burning, discharge, frequency, flank pain, hematuria, incontinence, pain, urgency, other Neurologic/Psychiatric: Denies: no symptoms, anxiety, depressed, emotional problems, headache, numbness, paresthesia, pre-existing deficit, seizure, tingling, tremors, weakness, other Endocrine: Denies: no symptoms, excessive sweating, flushing, intolerance to cold, intolerance to heat, increased hunger, increased thirst, increased urine, unexplained weight gain, unexplained weight loss, other Hematologic/Lymphatic: Denies: no symptoms, anemia, easy bleeding, easy bruising, other Allergies: Coded Allergies: HEPARIN (Verified Allergy, Unknown, 06/30/17) Subjective wants to leave [facility], counseled against it Objective Last 24 Hour Vital Signs Date Time Temp Pulse Resp B/P (MAP) Pulse Ox O2 Delivery O2 Flow Rate FiO2 08/26/18 12:00 98.6 60 18 144/78 (100) 97 08/26/18 09:18 Room Air 08/26/18 09:00 62 121/66 08/26/18 08:00 62 08/26/18 07:58 98.7 62 22 121/66 (84) 100 08/26/18 06:09 122/66 08/26/18 04:00 97.6 60 22 130/72 (91) 100 08/26/18 04:00 61 08/26/18 00:00 72 08/26/18 00:00 99.1 74 22 125/62 (83) 95 08/25/18 22:09 98.9 08/25/18 21:37 103/63 08/25/18 21:00 Room Air 08/25/18 20:00 76 08/25/18 20:00 100.6 82 22 103/63 (76) 95 08/25/18 16:00 77 08/25/18 16:00 99.8 74 20 110/63 (79) 97 08/25/18 13:48 102/65 Intake and Output 08/25/18 08/26/18 19:00 07:00 Intake Total 360 ml Output Total 0 ml Balance 360 ml 0 ml Intake Oral 360 ml Output Urine Total 0 ml Laboratory Tests 08/26/18 07:40: White Blood Count 4.6#L, Red Blood Count 3.66L, Hemoglobin 10.9L, Hematocrit 33.0L, Mean Corpuscular Volume 90, Mean Corpuscular Hemoglobin 29.7, Mean Corpuscular Hemoglobin Concent 32.9, Red Cell Distribution Width 14.0, Platelet Count 65L, Mean Platelet Volume 8.7, Neutrophils (%) (Auto) , Lymphocytes (%) ( Auto) , Monocytes (%) (Auto) , Eosinophils (%) (Auto) , Basophils (%) (Auto) , Differential Total Cells Counted 100, Neutrophils % (Manual) 90H, Lymphocytes % (Manual) 3L, Monocytes % (Manual) 6, Eosinophils % (Manual) 1, Basophils % ( Manual) 0, Band Neutrophils 0, Platelet Estimate DecreasedL, Platelet Morphology Normal, Anisocytosis 1+, Sodium Level 136, Potassium Level 4.4, Chloride Level 97L, Carbon Dioxide Level 26, Anion Gap 13, Blood Urea Nitrogen 57H, Creatinine 10.6H, Estimat Glomerular Filtration Rate 5.1, Glucose Level 78 , Calcium Level 7.5L Height (Feet): 5 Height (Inches): 6.00 Weight (Pounds): 184 General Appearance: alert Neck: normal alignment Cardiovascular: regular rhythm Respiratory/Chest: no respiratory distress Abdomen: no organomegaly Genitourinary/Rectal: normal prostate exam Extremities: non-tender René Lin MD Aug 26, 2018 12:18
[2018-08-26 14:00] VITALS: BP 144/78
--- NOTE | 2018-08-27 13:29 | Cardiology Report ---
APPROVED REPORT EXAM: Two-dimensional and M-mode echocardiogram with Doppler and color Doppler. INDICATION ENDOCARDITIS M-Mode DIMENSIONS IVSd1.7 (0.7-1.1cm)Left Atrium (MM)4.6 (1.6-4.0cm) LVDd7.9 (3.5-5.6cm)Aortic Root3.8 (2.0-3.7cm) PWd1.3 (0.7-1.1cm)Aortic Cusp Exc.1.7 (1.5-2.0cm) IVSs2.1 cm LVDs5.6 (2.5-4.0cm) PWs2.1 cm Technically difficult study due to poor acoustical windows . Normal left ventricular chamber size, systolic function and wall motion to extent visualized. Left ventricular ejection fraction estimated to be 55-60% Mild left ventricular hypertrophy by 2-D. No evidence of pericardial effusion. Mild left atrial enlargement. Right cardiac chamber sizes are within normal limits. Focal aortic valve sclerosis with reduced cusp excursion. Thickened mitral valve leaflets with normal excursion. Mitral annulus and aortic root calcification. Pulmonic valve not well visualized. Normal tricuspid valve structure. IVC at size 2.2cm with physiologic collapse. A color flow and spectral Doppler study was performed and revealed: No aortic regurgitation . Trace mitral regurgitation . Normal left ventricular diastolic function . Mild tricuspid regurgitation . Tricuspid systolic velocities suggests peak right ventricular systolic pressure of 36mmhg Consistent with mild pulmonory hypertension.
--- NOTE | 2018-08-28 13:08 | Discharge Summary ---
Discharge Summary Discharge Summary _ DATE OF ADMISSION: 08/24/2018 DATE OF DISCHARGE: 08/26/2018. Patient signed AGAINST MEDICAL ADVICE REASON FOR ADMISSION: 58 years old male with past medical history of hypertension, end-stage renal disease , on hemodialysis, anemia of chronic kidney disease, secondary hyperparathyroidism, presented for evaluation of right-sided tunneled dialysis catheter with associated redness and soreness. Patient denied chest pain, shortness of breath, nausea, vomiting, diarrhea. Patient was reported to be compliant with hemodialysis sessions. Upon evaluation patient was febrile with temperature 102.9, blood pressure was significantly elevated -201/93. Laboratory workup revealed no leukocytosis, hemoglobin 11.8 hematocrit 36.0. Platelets 113. Potassium 5.6. BUN 83, creatinine 14.6 t, consistent with known history of end -stage renal disease . Troponin negative. Patient was admitted for evaluation for possible catheter infection, sepsis, end -stage renal disease on hemodialysis, hyperkalemia, anemia of chronic kidney disease, hypertension, secondary hyperparathyroidism. CONSULTANTS: ID specialist Dr. Tipton plug making operator/oncologist Dr. Lester vascular surgery Dr. ParrishChanning Home COURSE: Patient admitted. Hemodialysis provided as per lead programmer recommendations with close monitoring of volumes, electrolytes and cardiorenal parameters. Due to elevated potassium , patient received two hour dialysis session on the day of admission , and then was placed on the regular schedule afterwards. Outpatient, home medications were resumed. Hemoglobin and hematocrit were closely monitored with plan to restart Epogen if hemoglobin drops below 10. Renvela was continued for secondary hyperparathyroidism. DVT prophylaxis with sequential compression device and ambulation provided, since patient was allergic to Heparin. Hyperkalemia resolved, potassium down to 4.4 prior to leaving. Patient started on empiric antibiotic. Blood culture revealed Serratia. Vascular surgeon seen and evaluated patient . Patient had infected right chest Perma-catheter with evidence of cellulitis , fever 102 with rigors. Left arm AV fistula was not accessible. Right chest Perma-cath was removed and tip was cultured on the bedside by vascular surgeon on 08/24. Culture of the tip revealed Serratia . Repeated blood culture were negative. IV antibiotic provided as per infectious disease doctor recommendations. Right femoral Freedom catheter was placed by vascular surgeon without any difficulty. Surgeon recommended to continue hemodialysis via Freedom catheter, .continue antibiotics per ID recommendations. Surgeon also recommended ECHO to rule out vegetation and Venous duplex bilateral upper [id number]. When blood culture negative , surgeon recommended a new upper arm AV shunt . Echocardiogram revealed preserved ejection fraction 55-60%. No evidence of pericardial effusion. No evidence of vegetation. Right ventricular systolic pressure of 36 consistent with mild pulmonary hypertension. Duplex bilateral upper extremity revealed occlusive acute thrombosis in left upper extremity basilic vein and occlusive chronic thrombosis in lower arm cephalic vein. Patient started on anticoagulation with Eliquis as recommend by vascular surgeon. Patient had no leukocytosis , but on showed leukopenia with WBC dropping from 9.8 to 4.6. Hematocrit were closely monitored with goal to keep hemoglobin above 7. Anemia workup revealed evidence of anemia of chronic disease with significantly elevated ferritin over 1999. Prior to leaving hemoglobin 10.9 and hematocrit 33. Noted low platelets, trended down from initial 113 down to 65. Hepatitis panel was negative. HIV test was nonreactive. Heparin-induced antibody test pending. Leukopenia was potentially due to underlying infection as per plug making operator. Patient decided to sign AGAINST MEDICAL ADVICE. The risks and consequences of signing AGAINST MEDICAL ADVICE were discussed with patient in detail. Patient verbalized understanding, nevertheless signed AMA form and left. FINAL DIAGNOSES: Sepsis with Serratia bacteremia , due to infected hemodialysis catheter Infected hemodialysis catheter with Serratia End-stage renal disease, on hemodialysis Acute DVT left upper extremity Hyperkalemia, resolved Anemia of chronic kidney disease. Leukopenia, potentially secondary to underlying infection I have been assigned to dictate discharge summary for this account. I was not involved in the patient's management. Evelina Santillan NP Aug 28, 2018 13:08
== END 2018-08-26 16:20 | disposition left against medical advice (07) | DRG 314 ==
LOC: EDBD 10:30 → EDBEDREQ 10:39 → EMR 10:54 → 2E 10:56 → EDBEDREQ 11:20 → 2E 16:26
PROC: 06HM33Z Insertion of Infusion Device into Right Femoral Vein, Percutaneous Approach (ICD-10-PCS; principal; 2018-08-24)
PROC: 05PYX3Z Removal of Infusion Device from Upper Vein, External Approach (ICD-10-PCS; principal; 2018-08-24)
PROC: 5A1D70Z Performance of Urinary Filtration, Intermittent, Less than 6 Hours Per Day (ICD-10-PCS; 2018-08-25)
DX: T82.7XXA Infection and inflammatory reaction due to other cardiac and vascular devices, implants and grafts, initial encounter (principal); A41.53 Sepsis due to Serratia; N18.6 End stage renal disease; I12.0 Hypertensive chronic kidney disease with stage 5 chronic kidney disease or end stage renal disease; Z99.2 Dependence on renal dialysis; E87.5 Hyperkalemia; E11.22 Type 2 diabetes mellitus with diabetic chronic kidney disease; D63.1 Anemia in chronic kidney disease; D72.818 Other decreased white blood cell count; Z88.8 Allergy status to other drugs, medicaments and biological substances; Z91.81 History of falling; D69.6 Thrombocytopenia, unspecified; E21.3 Hyperparathyroidism, unspecified
CPT/HCPCS: 36415; 71045; 80048; 80053; 80202; 82550; 82553; 82607; 82728; 82746; 83010; 83540; 83550; 83605; 83690; 83970; 84443; 84484; 84550; 85007; 85025; 85060; 85384; 86703; 86705; 86709; 86803; 87040; 87070; 87081; 87181; 87205; 87340; 93005; 93306; 93922; 93970; 96374; 96375; 99285; J2405